=== PATIENT | female | born 1950 | race Caucasian/White ===

== ENCOUNTER → 2022-05-15 07:50 | Outpatient (BNVA) | payer MEDICARE, SELFPAY | PROVIDERS: Family Provider Family Medicine; PCP Family Medicine; Visit Provider Family Medicine | DX: Z00.00 Encounter for general adult medical examination without abnormal findings (principal); I10 Essential (primary) hypertension | CPT/HCPCS: 80053; 80061 ==

== ENCOUNTER → 2022-06-18 07:54 | Outpatient (BNVA) | payer MEDICARE, SELFPAY | PROVIDERS: Family Provider Family Medicine; PCP Family Medicine; Visit Provider Family Medicine | DX: Z00.00 Encounter for general adult medical examination without abnormal findings (principal) | CPT/HCPCS: 80048 ==

== ENCOUNTER → 2022-09-30 13:31 | Outpatient (BNVA) | payer MEDICARE, SELFPAY | PROVIDERS: Family Provider Family Medicine; PCP Family Medicine; Visit Provider Family Medicine | DX: I10 Essential (primary) hypertension (principal); E87.1 Hypo-osmolality and hyponatremia | CPT/HCPCS: 80048 ==

== ENCOUNTER → 2023-03-11 07:54 | Outpatient (BNVA) | payer MEDICARE, SELFPAY | PROVIDERS: Family Provider Family Medicine; PCP Family Medicine; Visit Provider Family Medicine | DX: I10 Essential (primary) hypertension (principal); I87.2 Venous insufficiency (chronic) (peripheral) | CPT/HCPCS: 80048 ==

== ENCOUNTER → 2023-04-29 08:41 | Outpatient (BNVA) | payer MEDICARE, SELFPAY | PROVIDERS: Family Provider Family Medicine; PCP Family Medicine; Visit Provider Family Medicine | DX: I87.2 Venous insufficiency (chronic) (peripheral) (principal); Z00.00 Encounter for general adult medical examination without abnormal findings; I10 Essential (primary) hypertension | CPT/HCPCS: 80048 ==

== ENCOUNTER → 2023-07-13 07:47 | Outpatient (BNVA) | payer MEDICARE, SELFPAY | PROVIDERS: Family Provider Family Medicine; PCP Family Medicine; Visit Provider Family Medicine | DX: E87.1 Hypo-osmolality and hyponatremia (principal) | CPT/HCPCS: 80048 ==

== ENCOUNTER → 2024-03-15 10:46 | Outpatient (BNVA) | payer MEDICARE, SELFPAY | PROVIDERS: Family Provider Family Medicine; PCP Family Medicine; Visit Provider Family Medicine | DX: F43.9 Reaction to severe stress, unspecified (principal); I10 Essential (primary) hypertension; E87.1 Hypo-osmolality and hyponatremia; E03.9 Hypothyroidism, unspecified | CPT/HCPCS: 80053; 80061; 84443 ==

== ENCOUNTER 2024-07-13 07:43 | Emergency (ER) | payer MEDICARE, SELFPAY ==
--- NOTE | 2024-07-13 07:55 | XR_ITS ---
WS: [id number] Exam: XR wrist LT min 3V* [id number] Date/Time of Exam: 07/13/2024 8:17 AM Reason For Exam: pain There is an impacted comminuted fracture of the distal radius. There is some shortening. The ulna appears to be intact. Moderate degenerative changes at the wrist. XR/XR wrist LT min 3V* [id number] IMPRESSION: 1. Impacted comminuted fracture of the distal radius with some degree of shorte maura.
[2024-07-13 08:10] VITALS: BP 180/96; PULSE 83; RESP 18; TEMP 36.7; O2SAT 99; BMI 34.2
[2024-07-13] MEDS: acetaminophen 325 mg Tablet 650 MG PO (09:27)
--- NOTE | 2024-07-13 09:29 | ED_ITS ---
HPI - Extremity Problem General: Chief complaint: Extremity Injury, Upper Stated complaint: L wrist pain Time Seen by Provider: 07/13/24 07:54 History of Present Illness: 74-year-old female presents emergency ro om she fell landed on an outstretched arm. She has had episodes in the past where she is getting dizzy and fell she is never really found a specific reason for it. She denies full loss of consciousness. No chest pain or vomiting. Complaining of pain in her left wrist. Associated symptoms: Deny chest pain, fever(s) or rash Related Data Previous Rx's ?Medication ?Instructions ?Recorded hydrochlorothiazide 25 mg tablet 25 mg PO DAILY bp #90 tabs 10/05/23 losartan 100 mg tablet 100 mg PO DAILY #90 tabs 04/29 potassium chloride 20 mEq 20 meq PO DAILY take with HC TZ #90 03/15/24 tablet,extended release tabs escitalopram oxalate 10 mg tablet 10 mg PO DAILY stres s reactions 04/05/24 #30 tabs fast form, left wrist #1 ea 07/13/24 Allergies Allergy/AdvReac Type Severity Reaction Status Date / Time hydroxychloroquine (From Allergy Severe rash Verified 07/13/24 11:04 Plaquenil) codeine Allergy Intermediate nausea/vomi Verified 07/13/24 11:04 ting amlodipine AdvReac edema Uncoded 07/13/24 11:04 Review of Systems Const: Denies: fever(s) or chills Card: Denies: chest pain Resp: Denies: dyspnea GI: Denies: abdominal pain : Denies: dysuria, urinary frequency or urinary urgency Musc: Reports: joint pain and joint swelling; Denies: neck pain or back pain Skin/Breast: Denies: rash [facility] ED PFSH: Social History Smoking and tobacco/nicotine status: never used tobacco/nicotine Physical Exam Const: COMMON NORMALS: no acute distress GENERAL APPEARANCE: cooperative and comfortable ORIENTATION/CONSCIOUSNESS: Yes awake, Yes oriented to person, Yes oriented to place and Yes oriented to time HENMT: COMMON NORMALS: normocephalic, atraumatic and hearing grossly normal bilaterally HEAD & SCALP: normocephalic and atraumatic Resp: COMMON NORMALS: normal respiratory effort, No retractions, No use of accessory muscles and clear to auscultation bilaterally AUSCULTATION: clear to auscultation bilaterally Cardio: COMMON NORMALS: regular rate, regular rhythm and No murmurs present (Cardio) RATE: regular rate RHYTHM: regular rhythm GI: COMMON NORMALS: Soft to palpation and No hepatosplenomegaly present AUSCULTATION: Yes normoactive bowel sounds PALPATION: Yes Soft to palpation, No Tenderness to palpation present (GI), No Guarding due to palpation present (GI) and Yes No hepatosplenomegaly present Extremity: OTHER: Deformity of the left wrist neurovascularly intact Neuro: SENSORIUM/ORIENTATION: Yes oriented to person, Yes oriented to place and Yes oriented to time Skin: COMMON NORMALS: no rashes or lesions noted GENERAL SKIN EXAM: no rashes or lesions noted Course Vital Signs: Vital signs: Vital Signs Temperature 98.1 F 07/13/24 08:10 Pulse Rate 83 07/13/24 08:10 Respiratory Rate 18 07/13/24 08:10 Blood Pressure 180/96 07/13/24 08:10 Pulse Oximetry 99 07/13/24 08:10 Oxygen Delivery Me thod Room Air 07/13/24 08:10 MDM - Extremity (Nontraumatic) Medical Decision Making No other injuries injuries she does have is consistent with reaching out to break her fall. She does not have any injury or abrasion to her head or scalp. She denies any chest pain at this time has not had any vomiting. Patient placed in a splint we are making arrangements for discharge with Dr. Burt's office called they were able to see the patient immediately send patient was discharged from the ER to her office to discuss definitive care for the wrist fracture. Lab Data Radiology Impressions Wrist X-Ray 07/13/24 07:55 IMPRESSION: 1. Impacted comminuted fracture of the distal radius with some degree of shortening. All radiology interpretation(s) finalized by discharge Discharge Plan Discharge Patient Disposition: Home Clinical Impression: Distal radius fracture, left Condition: Stable Prescriptions: No Action (DME) fast form, left wrist See Rx Instructions .Route .MEDSUPPLY Qty: 1 0RF Rx Instructions: As directed hydrochlorothiazide 25 mg tablet 25 mg PO DAILY Qty: 90 3RF losartan 100 mg tablet 100 mg PO DAILY Qty: 90 3RF potassium chloride 20 mEq tablet extended release 20 meq PO DAILY Qty: 90 3RF escitalopram oxalate 10 mg tablet 10 mg PO DAILY Qty: 30 5RF Discharge Orders: Discharge ED (Routine); Ordered 07/13/24 Ordered By: Vineet Morales Referrals: Ramos Dixon DO [Primary Care Provider] - Discharge Diet: Usual diet Discharge Activity: Resume usual activity Patient Instructions: Opioid Safety, Pain Management Activity Restrictions/Additional Instructions: Thank you for choosing [facility] for your healthcare needs today. It is very important that you follow up as instructed or that you return to the Emergency Department should you have concerns or if your condition changes or worsens in any way. You were seen in the emergency room after having fallen last night on x-ray you have a distal radius fracture on the left forearm (wrist fracture). This likely will require some surgery. Will place you in a splint and a sling. You declined pain medication you can use [id number] Tylenol as needed for discomfort recommend you elevate the wrist when ever possible. Case management will make arrangements for you to follow-up with orthopedics. Print Language: Upper Sorbian Coding Level of Care Code ED Advisory Application Developer for Jen Christianson
== END 2024-07-13 10:57 | disposition home or self-care (01) ==
PROVIDERS: Emergency Provider Family Medicine; PCP Family Medicine
DX: S52.572A Other intraarticular fracture of lower end of left radius, initial encounter for closed fracture (principal); X58.XXXA Exposure to other specified factors, initial encounter; Z46.89 Encounter for fitting and adjustment of other specified devices
CPT/HCPCS: 25600; 29125; 73110; 99204; 99283; J9999

== ENCOUNTER 2024-07-13 15:12 | Outpatient (CLI) | payer MEDICARE, SELFPAY | END 2024-07-13 15:13 | disposition home or self-care (01) | LOC: SPT 15:13 | PROVIDERS: PCP Family Medicine; Visit Provider Specialist | DX: Z46.89 Encounter for fitting and adjustment of other specified devices (principal); S52.592D Other fractures of lower end of left radius, subsequent encounter for closed fracture with routine healing; X58.XXXD Exposure to other specified factors, subsequent encounter | CPT/HCPCS: 97760; L3982 ==

== ENCOUNTER 2024-07-16 13:35 | Emergency (ER) | payer MEDICARE, SELFPAY ==
[2024-07-16 13:39] VITALS: BP 147/78; PULSE 80; RESP 16; TEMP 36.6; O2SAT 96
--- NOTE | 2024-07-16 13:50 | W.ED.EXTPRO ---
HPI - Extremity Problem General: Chief complaint: Extremity Injury, Upper Stated complaint: swelling on lft hand Time Seen by Provider: 07/16/24 13:47 History of Present Illness: 74-year-old female with a history of a recent wrist fracture who presents to the emergency room with wrist pain and swelling. She was seen in Ortho clinic and was placed in a adjustable fast form splint. Dr. Katharine Medrano discussed surgical options and the patient is wanting to attempt nonsurgical options. No numbness. No pain in her fingers. Has no swelling in her fingers. She was concerned the splint might be too tight. Related Data Previous Rx's ?Medication ?Instructions ?Recorded hydrochlorothiazide 25 mg tablet 25 mg PO DAILY bp #90 tabs 10/05/23 losartan 100 mg tablet 100 mg PO DAILY #90 tabs 10/05/23 potassium chloride 20 mEq 20 meq PO DAILY take with HCTZ #90 03/15/24 tablet,extended release tabs escitalopram oxalate 10 mg tablet 10 mg PO DAILY stress reactions 04/05/24 #30 tabs tramadol 50 mg tablet 50 mg PO Q8H PRN pain #10 tabs 07/16/24 Allergies Allergy/AdvReac Type Severity Reaction Status Date / Time hydroxychloroquine (From Allergy Severe rash Verified 07/16/24 13:44 Plaquenil) codeine Allergy Intermediate nausea/vomi Verified 07/16/24 13:44 ting amlodipine AdvReac edema Uncoded 07/16/24 13:44 Review of Systems Narrative: Constitutional symptoms: Negative except as documented in HPI. Skin symptoms: Negative except as documented in HPI. Eye symptoms: Negative except as documented in HPI. ENMT symptoms: Negative except as documented in HPI. Respiratory symptoms: Negative except as documented in HPI. Cardiovascular symptoms: Negative except as documented in HPI. Gastrointestinal symptoms: Negative except as documented in HPI. Genitourinary symptoms: Negative except as documented in HPI. Musculoskeletal symptoms: Negative except as documented in HPI. Neurologic symptoms: Negative except as documented in HPI. Psychiatric symptoms: Negative except as documented in HPI. Endocrine symptoms: Negative except as documented in HPI. [facility] ED PFSH: Social History Smoking and tobacco/nicotine status: never used tobacco/nicotine Physical Exam Narrative: EXAM NARRATIVE: General: Alert, no acute distress. Skin: warm and dry Head: Normocephalic Neck: Trachea midline Eye: Extraocular movements are intact. Ears, nose, mouth and throat: Oral mucosa moist Respiratory: Respirations are non-labored Musculoskeletal: Splint in place. There is some edema of the fingers but she has full range of motion of the fingers. Good cap refill. No pain in her fingers. No numbness in her fingers. She has pain at the site of the fracture. Neurological: Alert and oriented, No focal neurological deficit observed. Psychiatric: Cooperative, appropriate mood & affect. Course Vital Signs: Vital signs: Vital Signs Temperature 98 F 07/16/24 13:39 Pulse Rate 80 07/16/24 13:39 Respiratory Rate 18 07/16/24 14:07 Blood Pressure 147/78 07/16/24 13:39 Pulse Oximetry 96 07/16/24 13:39 Oxygen Delivery Me thod Room Air 07/16/24 13:39 MDM - Extremity (Nontraumatic) Medical Decision Making Consultation: I spoke with Dr. Alcantar. She recommends the patient take it easy and keep the arm elevated which the patient has not been doing. I discussed this with the patient and she expresses understanding that if she wants to have a nonsurgical good outcome that she needs to limit her activity and keep the arm elevated as instructed. Assessment and plan: Follow-up for wrist fracture. - Discharged home - Discussed plan with patient. Answered any questions. - Evaluation and treatment of this problem were appropriate in the emergency setting. No radiology studies performed this visit Discharge Plan Discharge Patient Disposition: Home Clinical Impression: Fracture of wrist Qualifiers: Encounter type: subsequent encounter Fracture type: closed Laterality: left Fracture healing: with routine healing Qualified Code(s): S62.102D - Fracture of unspecified carpal bone, left wrist, subsequent encounter for fracture with routine healing Condition: Stable Prescriptions: New tramadol 50 mg tablet 50 mg PO Q8H PRN (Reason: pain) Qty: 10 0RF No Action hydrochlorothiazide 25 mg tablet 25 mg PO DAILY Qty: 90 3RF losartan 100 mg tablet 100 mg PO DAILY Qty: 90 3RF potassium chloride 20 mEq tablet extended release 20 meq PO DAILY Qty: 90 3RF escitalopram oxalate 10 mg tablet 10 mg PO DAILY Qty: 30 5RF Discharge Orders: Discharge ED (Routine); Ordered 07/16/24 Ordered By: Uzma Holloway Referrals: Belinda Alcantar MD [Physician] - (Please follow-up as instructed. Return the emergency room or to her clinic if pain worsens. Keep arm elevated and use ice.) Ramos Dixon, [Primary Care Provider] - Discharge Diet: Usual diet Discharge Activity: Limit activity as instructed Patient Instructions: Cast Care (ED), Opioid Safety, Pain Management Activity Restrictions/Additional Instructions: Thank you for choosing [facility] for your healthcare needs today. Please realize this is an emergency room and that we are providing you with a medical screening exam and this may not be complete and all inclusive of all the testing and or work up that you may need to determine your ailment or severity of your illness. You have been screened and evaluated and felt safe for discharge. Health conditions do change or evolve sometimes and as such it is important that you follow up with your Primary Doctor to be re checked, 3-5 days is a general good time frame for follow up. You are always welcome to return to the ED for re assessment if your symptoms are worsening or you have new concerns Print Language: Slovak Coding Level of Care Code ED Internet Assessor for Jen Christianson
[2024-07-16 14:07] VITALS: RESP 18
== END 2024-07-16 14:09 | disposition home or self-care (01) ==
PROVIDERS: Emergency Provider Emergency Medicine; PCP Family Medicine
DX: S62.102D Fracture of unspecified carpal bone, left wrist, subsequent encounter for fracture with routine healing (principal); X58.XXXD Exposure to other specified factors, subsequent encounter
CPT/HCPCS: 99281

== ENCOUNTER → 2024-07-25 09:57 | Outpatient (BNVA) | payer MEDICARE, SELFPAY | PROVIDERS: PCP Family Medicine; Visit Provider Specialist | DX: S52.572D Other intraarticular fracture of lower end of left radius, subsequent encounter for closed fracture with routine healing (principal); X58.XXXD Exposure to other specified factors, subsequent encounter | CPT/HCPCS: 73110; 99024 ==

== ENCOUNTER → 2024-08-01 11:15 | Outpatient (BNVA) | payer MEDICARE, SELFPAY | PROVIDERS: PCP Family Medicine; Visit Provider Specialist | DX: S52.572D Other intraarticular fracture of lower end of left radius, subsequent encounter for closed fracture with routine healing (principal); X58.XXXD Exposure to other specified factors, subsequent encounter | CPT/HCPCS: 73110; 99024 ==

== ENCOUNTER → 2024-08-19 08:19 | Outpatient (BNVA) | payer MEDICARE, SELFPAY | PROVIDERS: PCP Family Medicine; Visit Provider Nurse Practitioner | DX: S52.572D Other intraarticular fracture of lower end of left radius, subsequent encounter for closed fracture with routine healing (principal); X58.XXXD Exposure to other specified factors, subsequent encounter | CPT/HCPCS: 73110 ==

== ENCOUNTER → 2024-09-21 08:59 | Outpatient (BNVA) | payer MEDICARE, SELFPAY | PROVIDERS: PCP Family Medicine; Visit Provider Specialist | DX: S52.572D Other intraarticular fracture of lower end of left radius, subsequent encounter for closed fracture with routine healing (principal); X58.XXXD Exposure to other specified factors, subsequent encounter | CPT/HCPCS: 73110; 99024 ==

== ENCOUNTER 2024-10-12 17:01 | Emergency (ER) | payer MEDICARE, SELFPAY ==
[2024-10-12 17:07] VITALS: BP 151/71; PULSE 93; RESP 18; TEMP 36.8; O2SAT 95; BMI 34.9
--- OUTSIDE RECORDS SUMMARY | 2024-10-12 17:13 | XMS_ITS | Encounter Summary ---
Author Organization [facility] Address [address] [place] [address] Care Team Providers Care Veneer Patcher Name Role Phone Neela German DO Primary Care Provider [phone] [phone] Encounter Details Date Type Department Care Team (Latest Contact Info) Description 03/10/2000 Outpatient Historical [facility] Rheumatology- [place] [facility] [place] [address] [place] [phone] David Villanueva DO [address] [facility] [address] [place] [address] Unspecified inflammatory polyarthropathy (CMS/HCC) (Primary Dx); Other and unspecified nonspecific immunological findings; Anemia, unspecified; Diseases of lips Social History Tobacco Use Types Packs/Day Years Used Date Smoking Tobacco: Never Assessed Comments Unknown Sex and Gender Information Value Date Recorded Sex Assigned at Not on file 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
--- OUTSIDE RECORDS SUMMARY | 2024-10-12 17:13 | XMS_ITS | Encounter Summary ---
Author Organization [facility] Address [address] [place] [address] Care Team Providers Care Data Support Analyst Name Role Phone Neela German DO Primary Care Provider [phone] Encounter Details Date Type Department Care Team (Late st Contact Info) Description 02/02/2001 Outpatient Historical [facility] Rheumatology- [facility] [place] [address] [place] [address] David Villanueva DO [address] [facility] [address] [place] [address] DIFF CONNECT TIS DIS NOS (Primary Dx); INFLAMM POLYARTHROP NOS (CMS/HCC); JOINT PAIN-MULT JTS Social History Tobacco Use Types Packs/Day Years Used Date Smoking Tobacco: Never Assessed Comments Unknown Sex and Gender Information Value Date Recorded Sex Assigned at Not on file 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
--- OUTSIDE RECORDS SUMMARY | 2024-10-12 17:13 | XMS_ITS | Encounter Summary ---
Author Organization [facility] Address [address] [place] [address] Care Team Providers Care Masonry Teacher Name Role Phone Neela German DO Primary Care Provider [phone]- [phone] Encounter Details Date Type Department Care Team (Latest Contact Info) Description 05/05/2000 Outpatient Historical [facility] Rheumatology- [facility] [place] [address] [place] [address] David Villanueva DO [address] [facility] [address] [place] [address] Unspecified diffuse connective tissue disease (Primary Dx); Unspecified inflammatory polyarthropathy (CMS/HCC); Encounter for long-term (current) use of other medications Social History Tobacco Use Types Packs/Day Years Used Date Smoking Tobacco: Never Assessed Comments Unknown Sex and Gender Information Value Date Recorded Sex Assigned at Not on file 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 Gender Identity Not on file Sexual Orientation Not on file documented as of this encounter Plan of Treatment Not on file documented as of this encounter Visit Diagnoses Diagnosis Unspecified diffuse connective tissue disease- Primary Unspecified inflammatory polyarthropathy (CMS/HCC) Unspecified inflammatory polyarthropathy Encounter for long-term (current) use of other medications documented in this encounter Care Teams Masonry Teacher Relationship Specialty Start Date End Date Neela German DO [address] [place] [address] PCP - General Family Practice 08/08/20 documented as of this encounter
--- OUTSIDE RECORDS SUMMARY | 2024-10-12 17:13 | XMS_ITS | Encounter Summary ---
Author Organization [facility] Address [address] [place] [address] Care Team Providers Care Center Machine Operator Name Role Phone Neela German DO Primary Care Provider [phone]- [phone] Encounter Details Date Type Department Care Team (Late st Contact Info) Description 12/20/2002 Outpatient Historical [facility] Imaging Services-[facility] [place] [address] [place] [phone] David Villanueva DO [address] [facility] [address] [place] [address] RHEUMATOID ARTHRITIS (CMS/HCC) (Primary Dx) Social History Tobacco Use Types Packs/Day Years Used Date Smoking Tobacco: Never Assessed Comments Unknown Sex and Gender Information Value Date Recorded Sex Assigned at Not on file 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
--- OUTSIDE RECORDS SUMMARY | 2024-10-12 17:13 | XMS_ITS | Encounter Summary ---
Author Organization [facility] Address [address] [place] [address] Care Team Providers Care Sales And Production Manager Name Role Phone Neela German DO Primary Care Provider [phone]- [phone] Encounter Details Date Type Department Care Team (Late st Contact Info) Description 12/19/2003 Outpatient Historical [facility] Rheumatology- [facility] [place] [address] [place] [phone] aDvid Villanueva DO [address] [facility] [address] [place] [address] DIFF CONNECT TIS DIS NOS (Primary Dx) Social History Tobacco Use Types Packs/Day Years Used Date Smoking Tobacco: Never Assessed Comments Unknown Sex and Gender Information Value Date Recorded Sex Assigned at Not on file 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
--- OUTSIDE RECORDS SUMMARY | 2024-10-12 17:13 | XMS_ITS | Encounter Summary ---
Author Organization [facility] Address [address] [place] [address] Care Team Providers Care Field Cane Scale Clerk Name Role Phone Neela German DO Primary Care Provider +1- [phone] Encounter Details Date Type Department Care Team (Late st Contact Info) Description 04/08/2001 Outpatient Historical [facility] Rheumatology- [facility] [place] [address] [place] [phone] David Villanueva DO [address] [facility] [address] [place] [address] DIFF CONNECT TIS DIS NOS (Primary Dx); AFTERCARE LONGTERM USE MEDICATN Social History Tobacco Use Types Packs/Day Years Used Date Smoking Tobacco: Never Assessed Comments Unknown Sex and Gender Information Value Date Recorded Sex Assigned at Not on file 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
--- OUTSIDE RECORDS SUMMARY | 2024-10-12 17:13 | XMS_ITS | Encounter Summary ---
Author Organization [facility] Address [address] [place] [address] Care Team Providers Care Block Tester Name Role Phone Neela German DO Primary Care Provider +1- [phone] Encounter Details Date Type Department Care Team (Late st Contact Info) Description 06/21/2002 Outpatient Historical [facility] Rheumatology- [facility] [place] [address] [place] [address] David Villanueva DO [address] [facility] [address] [place] [address] DIFF CONNECT TIS DIS NOS (Primary Dx) Social History Tobacco Use Types Packs/Day Years Used Date Smoking Tobacco: Never Assessed Comments Unknown Sex and Gender Information Value Date Recorded Sex Assigned at Not on file 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
--- OUTSIDE RECORDS SUMMARY | 2024-10-12 17:13 | XMS_ITS | Encounter Summary ---
Author Organization [facility] Address [address] [place] [address] Care Team Providers Care Gun Stock Checker Name Role Phone Neela German DO Primary Care Provider +1- [phone] Encounter Details Date Type Department Care Team (Late st Contact Info) Description 10/04/2001 Outpatient Historical [facility] Imaging Services-[place] [facility] [address] [place] [address] David Villanueva DO [address] [facility] [address] [place] [address] DIFF CONNECT TIS DIS NOS (Primary Dx) Social History Tobacco Use Types Packs/Day Years Used Date Smoking Tobacco: Never Assessed Comments Unknown Sex and Gender Information Value Date Recorded Sex Assigned at Not on file 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
--- OUTSIDE RECORDS SUMMARY | 2024-10-12 17:13 | XMS_ITS | Encounter Summary ---
Author Organization [facility] Address [address] [place] [address] Care Team Providers Care Park Guard Name Role Phone Neela German DO Primary Care Provider +1- [phone] Encounter Details Date Type Department Care Team (Late st Contact Info) Description 05/05/2000 Outpatient Historical [facility] David Villanueva DO [address] 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
--- OUTSIDE RECORDS SUMMARY | 2024-10-12 17:13 | XMS_ITS | Encounter Summary ---
Author Organization [facility] Address [address] [place] [address] Care Team Providers Care Subwarehouse Supervisor Name Role Phone Neela German DO Primary Care Provider +1- [phone] Encounter Details Date Type Department Care Team (Latest Contact Info) Description 07/13/2000 Outpatient Historical [facility] Rheumatology- [facility] [place] [address] [place] [address] David Villanueva DO [address] [facility] [address] [place] [address] Syst lupus erythematosus (Primary Dx); Unspecified inflammatory polyarthropathy (CMS/HCC); Encounter for long-term (current) use of other medications Social History Tobacco Use Types Packs/Day Years Used Date Smoking Tobacco: Never Assessed Comments Unknown Sex and Gender Information Value Date Recorded Sex Assigned at Not on file 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 Gender Identity Not on file Sexual Orientation Not on file documented as of this encounter Plan of Treatment Not on file documented as of this encounter Visit Diagnoses Diagnosis Syst lupus erythematosus- Primary Systemic lupus erythematosus Unspecified inflammatory polyarthropathy (CMS/HCC) Unspecified inflammatory polyarthropathy Encounter for long-term (current) use of other medications documented in this encounter Care Teams Subwarehouse Supervisor Relationship Specialty Start Date End Date Neela German DO [address] [place] [address] PCP - General Family Practice 08/08/20 documented as of this encounter
--- OUTSIDE RECORDS SUMMARY | 2024-10-12 17:13 | XMS_ITS | Encounter Summary ---
Author Organization [facility] Address [address] [place] [address] Care Team Providers Care Tow Motor Mechanic Name Role Phone Neela German DO Primary Care Provider +1 [phone] Encounter Details Date Type Department Care Team (Late st Contact Info) Description 01/20/2005 Outpatient Historical [facility] Rheumatology- [facility] [place] [address] [place] [address] David Villanueva DO [address] [facility] [address] [place] [address] DIFF CONNECT TIS DIS NOS (Primary Dx); AFTERCARE DETENTION USE MEDICATN Social History Tobacco Use Types Packs/Day Years Used Date Smoking Tobacco: Never Assessed Comments Unknown Sex and Gender Information Value Date Recorded Sex Assigned at Not on file 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
--- OUTSIDE RECORDS SUMMARY | 2024-10-12 17:13 | XMS_ITS | Encounter Summary ---
Author Organization [facility] Address [address] [place] [address] Care Team Providers Care Information Security Consultant Name Role Phone Neela German DO Primary Care Provider +1- [phone] Encounter Details Date Type Department Care Team (Late st Contact Info) Description 03/10/2000 Outpatient Historical [facility] David Villanueva DO [address] [facility] [address] [place] [id number] Syst lupus erythematosus (Primary Dx) Social History Tobacco Use Types Packs/Day Years Used Date Smoking Tobacco: Never Assessed Comments Unknown Sex and Gender Information Value Date Recorded Sex Assigned at Not on file Legal 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
--- OUTSIDE RECORDS SUMMARY | 2024-10-12 17:13 | XMS_ITS | Encounter Summary ---
Author Organization [facility] Address [address] [place] [address] Care Team Providers Care Logistics Supervisor Name Role Phone Neela German DO Primary Care Provider +1- [phone] Encounter Details Date Type Department Care Team (Late st Contact Info) Description 10/04/2001 Outpatient Historical [facility] Rheumatology- [facility] [place] [address] [place] [address] David Villanueva DO [address] 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
--- OUTSIDE RECORDS SUMMARY | 2024-10-12 17:13 | XMS_ITS | Encounter Summary ---
Author Organization [facility] Address [address] [place] [address] Care Team Providers Care Solutions Sales Executive Name Role Phone Neela German DO Primary Care Provider +1 [phone] Encounter Details Date Type Department Care Team (Late st Contact Info) Description 12/20/[address] 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 Gender Identity Not on file Sexual Orientation Not on file documented as of this encounter Plan of Treatment Not on file documented as of this encounter Visit Diagnoses Diagnosis Unspecified diffuse connective tissue disease- Primary Unspecified inflammatory polyarthropathy (CMS/HCC) Unspecified inflammatory polyarthropathy Encounter for long-term (current) use of other medications documented in this encounter Care Teams Solutions Sales Executive Relationship Specialty Start Date End Date Neela German DO [address] [place] [address] PCP - General Family Practice 08/08/20 documented as of this encounter
--- OUTSIDE RECORDS SUMMARY | 2024-10-12 17:13 | XMS_ITS | Clinical Summary ---
Author Organization [facility] Address [address] [place] [address] Care Team Providers Care Group Home Supervisor Name Role Phone Neela German Primary Care Provider +1- [phone] Allergies Active Allergy Reactions Criticality Noted Date Comments Codeine Nausea and Vomiting Low 02/16/2008 Medications HYZAAR PO Take by mouth. Activ e losartan-hydroCHL OROthiazide (HYZAAR) 100-25 mg tablet Take 25 Tablets by mouth daily. 07/07/19 21 Active ergocalciferol (Vitamin D2) 50,000 unit capsuleIndication s:Vitamin D insufficiency Take 1 Capsule (50,000 Units) by mouth see administration instructions. Take 1 tab weekly x 8 weeks then take twice monthly after that. 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 Resolved Problems Problem Noted Date Diagnosed Date Resolved Date Long-Term (Current) Use of Leflunomide 02/16/2008 02/15/2009 Overview (02/16/2008): No evidence of developing side effects. 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 Will attempts to reduce dose further to once weekly to maintain custodial remission and lab every 3 mo. Unspecified diffuse connective tissue disease 02/16/2008 Immunizations Immunization Administration Dates Next Due ([place])(12 YR UP) COVID-19 VACCINE - EMERGENCY USE AUTHORIZATION, MRNA, [id number](PF) 30 MCG/0.3 ML IM SUSP 06/29/2020,06/01/2020 Influenza Vaccine Tri Split 4+ Pf Im 03/14/2013 Pneumococcal 13-valent Conjugate Vaccine SCHIP 0 06/20/2019 Pneumococcal Polysaccharide Vaccine 23-leigh IM VF C 06/19/2020 Social History Tobacco Use Types Packs/Day Years Used Date Smoking Tobacco: Never Smokeless Tobacco: Never Alcohol Use Standard Drinks/Week Comments No 0 (1 standard drink = 0.6 oz pur e alcohol) Comments No Sex and Gender Information Value Date Recorded Sex Assigned at Not on file 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 Gender Identity Not on file Sexual Orientation Not on file Last Filed Vital Signs Vital Sign Reading Time Taken Comments Blood Pressure 128/88 08/08/2020 2:39 PM CDT Pulse 96 08/08/2020 2:39 PM CDT Temperature 36.7 C (98 F) 08/08/2020 2:39 PM CDT Respiratory Rate - - Oxygen Saturation 98% 08/08/2020 2:39 PM CDT Inhaled Oxygen Concentration - - Weight 97.1 kg (214 lb) 08/08/2020 2:39 PM CDT Height 162.6 cm (5' 4 ) 08/08/2020 2:39 PM CDT Body Mass Index 36.73 08/08/2020 2:39 PM CDT Plan of Treatment Health Maintenance Due Date Last Done Comments DTAP/TDAP/TD VACCINES (1 - Tdap) 1967 ZOSTER VACCINE (1 of 2) 1998 OSTEOPOROSIS SCREENING 2013 PNEUMOCOCCAL VACCINE 50+ YEA RS (2 of 2 - PCV) 06/19/2021 06/19/2020 RSV VACCINE (60+ or ) (1 - 1-dose 75+ series) 2023 COVID-19 Vaccine (3 - 2023- season) 2023, 06/01/2020 Preventative Visit- Commercial 04/06/2024 INFLUENZA VACCINE (#1) 2024 1, 08/08/2020, 03/14/2013 Insurance MEDICARE PART A [facility] B [facility] Care Teams Group Home Supervisor Relationship Specialty Start Date End Date Neela German DO [address] [place] [address] PCP - General Family Practice 08/08/20
--- OUTSIDE RECORDS SUMMARY | 2024-10-12 17:13 | XMS_ITS | Encounter Summary ---
Author Organization [facility] Address [address] [place] [address] Care Team Providers Care Chicle Grinder Feeder Name Role Phone Neela German DO Primary Care Provider +1 [phone] Encounter Details Date Type Department Care Team (Late st Contact Info) Description 12/28/2006 Outpatient Historical [facility] Rheumatology- [facility] [place] [address] [place] [address] David Villanueva DO [address] [facility] [address] [place] [address] Unspecified Diffuse Connective Tissue Disease (Primary Dx); Encounter for Long-Term (Current) Use of Other Medications Social History Tobacco Use Types Packs/Day Years Used Date Smoking Tobacco: Never Assessed Comments No Sex and Gender Information Value Date Recorded Sex Assigned at Not on file Legal Sex Female 3:11 AM SCALER Gender Identity Not on file Sexual Orientation Not on file documented as of this encounter Plan of Treatment Not on file documented as of this encounter Visit Diagnoses Diagnosis Unspecified diffuse connective tissue disease- Primary Encounter for long-term (current) use of other medications documented in this encounter Care Teams Chicle Grinder Feeder Relationship Specialty Start Date End Date Neela German DO [address] [place] [phone] PCP - General Family Practice 08/08/20 documented as of this encounter
--- OUTSIDE RECORDS SUMMARY | 2024-10-12 17:13 | XMS_ITS | Encounter Summary ---
Author Organization [facility] Address [address] [place] [address] Care Team Providers Care Commodity Director Name Role Phone Neela German DO Primary Care Provider +1 [phone] Encounter Details Date Type Department Care Team (Late st Contact Info) Description 12/22/2005 Outpatient Historical [facility] Rheumatology- [facility] [place] [address] [place] [address] David Villanueva DO [address] [facility] [address] [place] [address] Unspecified Diffuse Connective Tissue Disease (Primary Dx); Encounter for Long-Term (Current) Use of Other Medications Social History Tobacco Use Types Packs/Day Years Used Date Smoking Tobacco: Never Assessed Comments Unknown Sex and Gender Information Value Date Recorded Sex Assigned at Not on file 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
--- OUTSIDE RECORDS SUMMARY | 2024-10-12 17:14 | XMS_ITS | Encounter Summary ---
Author Organization [facility] Address [address] [place] [address] Care Team Providers Care Seismograph Supervisor Name Role Phone Neela German DO Primary Care Provider [phone]- [phone] Encounter Details Date Type Department Care Team (Late st Contact Info) Description 09/14/2000 Outpatient Historical [facility] David Villanueva DO [address] [facility] [address] [place] [address] Encounter for long-term (current) use of other medications (Primary Dx); Unspecified diffuse connective tissue disease Social History Tobacco Use Types Packs/Day Years Used Date Smoking Tobacco: Never Assessed Comments Unknown Sex and Gender Information Value Date Recorded Sex Assigned at Not on file 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
--- OUTSIDE RECORDS SUMMARY | 2024-10-12 17:14 | XMS_ITS | Encounter Summary ---
Author Organization [facility] Address [address] [place] [address] Care Team Providers Care Detective Supervisor Name Role Phone Neela German DO Primary Care Provider +1- [phone] Encounter Details Date Type Department Care Team (Late st Contact Info) Description 07/13/2000 Outpatient Historical [facility] David Villanueva DO [address] [facility] [address] [place] [address] Encounter for long-term (current) use of other medications (Primary Dx); Rheumatoid arthritis(714.0) (CMS/HCC) Social History Tobacco Use Types Packs/Day Years Used Date Smoking Tobacco: Never Assessed Comments Unknown Sex and Gender Information Value Date Recorded Sex Assigned at Not on file Legal 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
--- OUTSIDE RECORDS SUMMARY | 2024-10-12 17:14 | XMS_ITS | Encounter Summary ---
Author Organization [facility] Address [address] [place] [address] Care Team Providers Care Hat Copyist Name Role Phone Neela German DO Primary Care Provider +1- [phone] Encounter Details Date Type Department Care Team (Latest Contact Info) Description 09/14/2000 Outpatient Historical [facility] Rheumatology- [facility] [address] [place] [address] David Villanueva DO [address] [facility] [address] [place] [address] Unspecified diffuse connective tissue disease (Primary Dx); Unspecified inflammatory polyarthropathy (CMS/HCC) Social History Tobacco Use Types Packs/Day Years Used Date Smoking Tobacco: Never Assessed Comments Unknown Sex and Gender Information Value Date Recorded Sex Assigned at Not on file 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
--- OUTSIDE RECORDS SUMMARY | 2024-10-12 17:14 | XMS_ITS | Clinical Summary ---
Author Organization [facility] Address [address] [place] [address] Care Team Providers Care Automatic Beam Warper Tender Name Role Phone Ramos Dixon DO Primary Care Provider [phone] Allergies Active Allergy Reactions Criticality Noted Date Comments Codeine Nausea and Vomiting Low 02/16/2008 Medications ergocalciferol (VITAMIN D2) 50,000 unit capsuleIndication s:Vitamin D insufficiency Take 1 Capsule (50,000 Units) by mouth see administration instructions. Take 1 tab weekly x 8 weeks then take twice monthly after that. 16 Capsule 2 08/10/19 21 Active losartan-hydroCHL OROthiazide (HYZAAR) 100-25 mg tablet Take 25 Tablets by mouth daily. 07/07/19 21 Active Active Problems Problem Noted Date Diagnosed Date MCTD ELIZABETH 1:320 COAL HAULER+ SSA+ Dx 03/200002/15/2009 Overview (08/02/2020): Will discontinue the use of low dose leflunomide now that no evidence of active inflammatory disease activity. Resolved Problems Problem Noted Date Diagnosed Date Resolved Date Long-Term (Current) Use of Leflunomide 02/16/2008 02/15/2009 Overview (08/01/2020): No evidence of developing side effects. MCTD ELIZABETH 1:320 COAL HAULER+ SSA+ Dx 03/200002/16/2008 02/15/2009 Overview (08/01/2020): Remains in clinical remission on low dose Leflunomide. Will attempts to reduce dose further to once weekly to maintain fpc remission and lab every 3 mo. Unspecified diffuse connective tissue disease 02/16/2008 Immunizations Immunization Administration Dates Next Due ([employer])(12 YR UP) COVID-19 VACCINE - EMERGENCY USE AUTHORIZATION, MRNA, [id number](PF) 30 MCG/0.3 ML IM SUSP 06/29/2020,06/01/2020 Influenza Vaccine Tri Split 4+ Pf Im 03/14/2013 Pneumococcal 13-valent Conjugate Vaccine SCHIP 0 06/20/2019 Pneumococcal Polysaccharide Vaccine 23-leigh IM VF C 06/19/2020 Social History Tobacco Use Types Packs/Day Years Used Date Smoking Tobacco: Never Smokeless Tobacco: Never Alcohol Use Standard Drinks/Week Comments No 0 (1 standard drink = 0.6 oz pur e alcohol) Comments Unknown Sex and Gender Information Value Date Recorded Sex Assigned at Not on file 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 Gender Identity Not on file Sexual Orientation Not on file Last Filed Vital Signs Vital Sign Reading Time Taken Comments Blood Pressure 128/88 08/08/2020 2:39 PM CDT Pulse 96 08/08/2020 2:39 PM CDT Temperature 36.7 C (98 F) 08/08/2020 2:39 PM CDT Respiratory Rate - - Oxygen Saturation - - Inhaled Oxygen Concentration - - Weight 97.1 [...] 75+ series) 2023 COVID-19 Vaccine (3 - season) 2023, 06/01/2020 INFLUENZA VACCINE (#1) 2024 , 08/08/2020, 03/14/2013 Care Teams Automatic Beam Warper Tender Relationship Specialty Start Date End Date Ramos Dixon DO [address] [place] [address] PCP - General Family Practice 03/19/23
--- NOTE | 2024-10-12 17:27 | XRR_ITS ---
PROCEDURE INFORMATION: Exam: XR Chest Exam date and time: 10/12/2024 6:16 PM Age: 74 years old Clinical indication: Other: Weakness TECHNIQUE: Imaging protocol: Radiologic exam of the chest. Views: 1 view. COMPARISON: No relevant prior studies available. FINDINGS: Lungs: Unremarkable. No consolidation. Pleural spaces: Unremarkable. No pleural effusion. No pneumothorax. Heart/Mediastinum: Unremarkable. No cardiomegaly. Bones/joints: Unremarkable. XR/XR chest 1V portable [id number] IMPRESSION: No acute findings.
--- NOTE | 2024-10-12 17:28 | ECG_ITS ---
[facility]: 2024-10[facility]12 Pat Name: Fátima Zaragoza Department: Room: Gender: Female Accessioner: : [email or web address] Requested By: Krystian Barone Order Number: [id number] Giselle MD: Anamaria May M.D. Measurements Intervals [place] Rate: 92 P: 34 VA: 167 QRS: -10 QRSD: 93 T: 19 QT: 347 QTc: 429 Interpretive Statements SINUS RHYTHM LOW QRS VOLTAGE IN PRECORDIAL LEADS [QRS DEFLECTION < 1.0 mV IN CHEST LEADS] No previous ECG available for comparison Electronically Signed On 10-12-2024 19:59:21 CDT by Anamaria May M.D. [email or web address]
[2024-10-12 18:40] LABS: Hematocrit 40.7 % (36-47); Hemoglobin 13.60 g/dL (11.27-16.99); Mean Corpuscular HGB Conc 33.4 g/dL (30-55); Mean Corpuscular Hemoglobin 28.0 pg (27-33); Mean Corpuscular Volume 83.7 fl (85-98); Nucleated Red Blood Cells % 0 %; Platelet Count 240 10^3/cmm (157-399); Red Blood Count 4.86 10^6/uL (3.85-5.65); White Blood Count 8.81 10^3/uL (3.29-11.43)
[2024-10-12 18:49] LABS: Alanine Aminotransferase 15 U/L (0-33); Albumin Level 3.8 g/dL (3.5-5.2); Alkaline Phosphatase 69 U/L (35-105); Anion Gap 16.0 (5-19); Aspartate Amino Transferase 19 U/L (0-32); Blood Urea Nitrogen 11 mg/dL (8-23); Calcium 9.3 mg/dL (8.5-10.5); Carbon Dioxide 27 mmol/L (22-29); Chloride 97 mmol/L (98-107); Creatinine Clr Calc Pharmacy 68.2848; Globulin 3.6 g/dL (1.3-4.6); Glucose 116 mg/dL (65-115); Lipase 46 U/L (13-60); Magnesium 2.0 mg/dL (1.7-2.3); Osmolality Calculated 284 mOsm/kg (285-295); Potassium 3.0 mmol/L (3.5-5.1); Sodium 137 mmol/L (136-145); Total Protein 7.4 g/dL (6.6-8.7)
[2024-10-12 18:51] LABS: Lactic Sepsis W/Reflex 1.5 mmol/L (0.5-2.2)
[2024-10-12 19:26] LABS: Glucose Urine UA Negative (Normal); Nitrate Urine Positive (Negative); Specific Gravity, Urine 1.022 (1.005-1.030)
[2024-10-12 19:29] LABS: Add Urine Microscopic? YES
--- NOTE | 2024-10-12 19:37 | CTR_ITS ---
PROCEDURE INFORMATION: Exam: CT Abdomen And Pelvis With Contrast Exam date and time: 10/12/2024 8:42 PM Age: 74 years old Clinical indication: Abdominal pain; Generalized; Prior surgery; Surgery date: 6+ months; Surgery type: Total hysterectomy; Additional info: Abdominal pain, n/v/d, TECHNIQUE: Imaging protocol: Computed tomography of the abdomen and pelvis with contrast. Radiation optimization: All CT scans at this facility use at least one of these dose optimization techniques: automated exposure control; mA and/or kV adjustment per patient size (includes targeted exams where dose is matched to clinical indication); or iterative reconstruction. Contrast material: OMNIPAQUE 350; Contrast volume: 100 ml; Contrast route: INTRAVENOUS (IV); COMPARISON: CR (CHEST, ) 10/12/2024 6:16 PM RADIATION DOSE METRICS: Total DLP (mGy-cm): 858.9 FINDINGS: Liver: No discrete liver lesions are apparent. Smooth hepatic contour. Gallbladder and biliary ducts: Prior cholecystectomy. Pancreas: No evidence of pancreatitis. No ductal dilation. Spleen: Granulomatous changes in the spleen. Adrenal glands: Adrenal glands are within expected limits. Kidneys and ureters: No renal or ureteral calculi are identified. No hydronephrosis. Stomach and bowel: Some mild hyperemia of bowel loops, most notable in the right colon. No evidence of bowel obstruction, however. Appendix: No evidence of appendicitis. Intraperitoneal space: No free air. No significant fluid collection. Vasculature: No abdominal aortic aneurysm. Lymph nodes: Mild haziness of the root of the mesentery along with some tiny mesenteric lymph nodes, nonspecific. Urinary bladder: Unremarkable as visualized. Reproductive: Prior hysterectomy. Bones/joints: Grade 1 degenerative anterolisthesis of L4 on L5. No acute osseous findings. Soft tissues: Unremarkable. CT/CT abdomen pelvis w con* [id number] IMPRESSION: Findings somewhat suggestive of mild enteritis/enterocolitis.
[2024-10-12] MEDS: ondansetron 2 mg/ML SDV 2 mL 4 MG IVP (20:06)
[2024-10-12] MEDS: cefTRIAXone 1,000 mg SDV 1000 MG IVP (20:12)
[2024-10-12] MEDS: iohexol 350 mg/mL 500 mL Btl (per mL) IV (20:46)
[2024-10-12 20:53] VITALS: BP 166/70; PULSE 111; RESP 16; O2SAT 95
--- NOTE | 2024-10-12 21:09 | ED_ITS ---
HPI - Nausea/Vomiting/Diarrhea 2 General: Chief complaint: Nausea/Vomiting/Diarrhea Stated complaint: Fall, N/V/D, Weakness Time Seen by Provider: 10/12/24 17:06 History of Present Illness: Patient is a 74-year-old female who presents to the emergency department with complaints of nausea, vomiting, diarrhea, and significant weakness that began today around 14:00. She reports having elevated blood pressure for a couple of days prior to the onset of gastrointestinal symptoms. The patient experienced one episode of vomiting and one episode of watery diarrhea. She denies black or bloody stool. The patient describes feeling extremely weak, stating she had difficulty getting up and had to lean against the bathroom wall for support. She denies chest pain, shortness of breath, or urinary symptoms. The patient denies recent travel, sick contacts, or antibiotic use. She has no history of falls or head trauma. She denies taking blood thinners. Related Data Previous Rx's ?Medication ?Instructions ?Recorded hydrochlorothiazide 25 mg tablet 25 mg PO DAILY bp #90 tabs 10/05/23 losartan 100 mg tablet 100 mg PO DAILY #90 tabs 04/29 potassium chloride 20 mEq 20 meq PO DAILY take with HC TZ #90 03/15/24 tablet,extended release tabs tramadol 50 mg tablet 50 mg PO Q8H PRN pain #10 ta bs 07/16/24 escitalopram oxalate 10 mg tablet 10 mg PO DAILY stres s reactions 08/30/24 #30 tabs ciprofloxacin HCl 500 mg tablet 500 mg PO Q12H #14 tab s 10/12/24 (Cipro) Allergies Allergy/AdvReac Type Severity Reaction Status Date / Time hydroxychloroquine (From Allergy Severe rash Verified 09/21/24 07:36 Plaquenil) codeine Allergy Intermediate nausea/vomi Verified 09/21/24 07:36 ting amlodipine AdvReac edema Uncoded 09/21/24 07:36 PFS ED 2 PFSH: Social History Smoking and tobacco/nicotine status: never used tobacco/nicotine Course 2 Vital Signs: Vital signs: Vital Signs Temperature 98.2 F 10/12/24 17:07 Pulse Rate 111 H 10/12/24 20:53 Respiratory Rate 16 10/12/24 20:53 Blood Pressure 166/70 10/12/24 20:53 Pulse Oximetry 95 10/12/24 20:53 Oxygen Delivery Me thod Room Air 10/12/24 20:53 MDM - Nausea/Vomiting/Diarrhea Medical Decision Making ROS: Constitutional: Positive for weakness. Negative for fever, chills. Cardiovascular: Negative for chest pain, palpitations. Respiratory: Negative for shortness of breath, cough. Gastrointestinal: Positive for nausea, vomiting (one episode), diarrhea (one episode, watery). Negative for abdominal pain, black or bloody stool. Genitourinary: Negative for dysuria, frequency, urgency. Neurological: Negative for headache, dizziness, syncope. All other systems reviewed and negative except as noted in HPI. MEDICATIONS AND ALLERGIES: - Meds: Patient is on oral potassium supplementation - Allergies: None reported PAST HISTORICAL DATA: - PMH: Hypertension, hypokalemia - PSH: Not documented - Social: Not documented PHYSICAL EXAM: General: Alert, nontoxic female in no acute distress. HEENT: Mucous membranes somewhat tacky. Neck: Not documented. Respiratory: Not specifically documented. Cardiac: Not specifically documented. Abdomen: Soft, nondistended, without significant abdominal tenderness. No guarding or rebound. Neuro: Not specifically documented. Extremities: Not documented. INITIAL IMPRESSION AND PLAN: Given the history and presentation, the primary working diagnosis is gastroenteritis with dehydration. Additional considerations include urinary tract infection, electrolyte abnormalities, and possible early sepsis. Based on this initial impression I will order: 1. IV fluid hydration 2. Laboratory studies including CBC, CMP, lactic acid, lipase, and urinalysis 3. Imaging studies including CT abdomen/pelvis and chest X-ray 4. Symptomatic treatment as needed TEST INTERPRETATIONS: - CT Abdomen/Pelvis: Findings consistent with mild enteritis/enterocolitis. No other acute pathology noted. - Chest X-ray: Negative for acute processes. - CBC: WBC 8.8, Hemoglobin 13.6, Platelets 240. Within normal limits. - Chemistry: Potassium 3.0 (low), Blood glucose 116. - Lactic acid: 1.5 (normal). - LFTs: Normal. - Lipase: 48 (normal). - Urinalysis: Positive for UTI with 2+ leukocyte esterase, positive nitrites, 11-20 WBCs, and significant bacteriuria. CONSIDERED BUT NOT PERFORMED: Oral potassium replacement was considered but not administered in the ED as the patient declined and stated she would prefer to continue her regular PO potassium replacement at home. FINAL IMPRESSION: Based on all the above, my clinical impression is most compatible with: 1. Urinary tract infection 2. Mild enteritis/enterocolitis 3. Hypokalemia 4. Dehydration The clinical picture is not currently suggestive of sepsis, acute abdomen, or other serious intra-abdominal pathology. Although other conditions were also considered, they were deemed unlikely based on the clinical information available. CLINICAL DISPOSITION: The patient's current condition is stable in my estimation and the most appropriate and indicated disposition at this time is discharge home with oral antibiotics. The patient is safe for discharge home as she has shown clinical improvement following IV fluid hydration. Her vital signs have normalized with a blood pressure of 131/89 and heart rate of 90. She reports feeling much better on reassessment and is comfortable with discharge. Her urinary tract infection has been initially treated with IV Rocephin and she will continue treatment with oral ciprofloxacin. Her enteritis appears mild on imaging with no concerning features. While her potassium is low at 3.0, she is on home potassium supplementation and has declined additional replacement in the ED, stating she will continue her regular regimen at home. RISK STRATIFICATION AND CLINICAL DECISION RULES APPLIED: No formal clinical decision rules were applied in this case. The patient's presentation, diagnostic findings, and clinical response to treatment guided management decisions. CASE SUMMARY: 74-year-old female presented with acute onset of nausea, vomiting, diarrhea, and significant weakness that began today. Patient had one episode each of vomiting and watery diarrhea. She reported elevated blood pressure for a couple of days prior to GI symptoms. Initial workup revealed hypokalemia (K+ 3.0) and a urinary tract infection with positive nitrites, leukocyte esterase, and significant bacteriuria. CT abdomen/pelvis showed mild enteritis/enterocolitis without other acute pathology. Patient received IV fluids and 1 gram of IV Rocephin in the ED. She declined potassium replacement, preferring to continue her home regimen. Following treatment, the patient reported significant improvement in symptoms with normalized vital signs. She was discharged home with ciprofloxacin for UTI treatment, instructions to continue her potassium supplementation, and appropriate return precautions. SEPSIS COMPLIANCE: Patient does not meet criteria for sepsis. Lactic acid was 1.5, which is within normal limits. Lab Data I reviewed the patient's lab results. 10/12/24 17:55 10/12/24 17:55 Radiology Impressions Chest X-Ray 10/12/24 17:27 IMPRESSION: No acute findings. Abdomen/Pelvis CT 10/12/24 19:37 IMPRESSION: Findings somewhat suggestive of mild enteritis/enterocolitis. Laboratory Results WBC 8.81 10^3/uL (3.29-11.43) 10/12/24 17:55 RBC 4.86 10^6/uL (3.85-5.65) 10/12/24 17:55 Hgb 13.60 g/dL (11.27-16.99) 10/12/24 17:55 Hct 40.7 % (36-47) 10/12/24 17:55 MCV 83.7 fl (85-98) L 10/12/24 17:55 MCH 28.0 pg (27-33) 10/12/24 17:55 MCHC 33.4 g/dL (30-55) 10/12/24 17:55 RDW 13.9 % (12.1-15.1) 10/12/24 17:55 Plt Count 240 10^3/cmm (157-399) 10/12/24 17:55 MPV 9.0 fL (7.4-10.4) 10/12/24 17:55 Neut % (Auto) 84.6 % 10/12/24 17:55 Lymph % (Auto) 8.7 % 10/12/24 17:55 [place] % (Auto) 5.9 % 10/12/24 17:55 Eos % (Auto) 0.0 % 10/12/24 17:55 Baso % (Auto) 0.3 % 10/12/24 17:55 Neut # (Auto) 7.45 10^3/uL (1.8-7.7) 10/12/24 17:55 Lymph # (Auto) 0.8 10^3/uL (0.8-4.8) 10/12/24 17:55 [place] # (Auto) 0.5 10^3/uL (0.2-0.9) 10/12/24 17:55 Eos # (Auto) 0.0 10^3/uL (0.0-0.8) 10/12/24 17:55 Baso # (Auto) 0.0 10^3/uL (0.0-0.1) 10/12/24 17:55 Nucleated RBC % (auto) 0 % 10/12/24 17:55 Nucleated RBCs # 0.0 /100WBC 10/12/24 17:55 Sodium 137 mmol/L (136-145) 10/12/24 17:55 Potassium 3.0 mmol/L (3.5-5.1) L 10/12/24 17:55 Chloride 97 mmol/L (98-107) L 10/12/24 17:55 Carbon Dioxide 27 mmol/L (22-29) 10/12/24 17:55 Anion Gap 16.0 (5-19) 10/12/24 17:55 BUN 11 mg/dL (8-23) 10/12/24 17:55 Creatinine 0.5 mg/dL (0.5-0.9) 10/12/24 17:55 GFR Calculation Not Reportable 10/12/24 17:55 Glucose 116 mg/dL (65-115) H 10/12/24 17:55 Calculated Osmolality 284 mOsm/kg (285-295) L 10/12/24 17:55 Lactic Acid 1.5 mmol/L (0.5-2.2) 10/12/24 17:55 Calcium 9.3 mg/dL (8.5-10.5) 10/12/24 17:55 Magnesium 2.0 mg/dL (1.7-2.3) 10/12/24 17:55 Total Bilirubin 1.1 mg/dL (0.15-1.2) 10/12/24 17:55 AST 19 U/L (0-32) 10/12/24 17:55 ALT 15 U/L (0-33) 10/12/24 17:55 Alkaline Phosphatase 69 U/L (35-105) 10/12/24 17:55 Total Protein 7.4 g/dL (6.6-8.7) 10/12/24 17:55 Albumin 3.8 g/dL (3.5-5.2) 10/12/24 17:55 Globulin 3.6 g/dL (1.3-4.6) 10/12/24 17:55 Lipase 46 U/L (13-60) 10/12/24 17:55 Urine Color Dark yellow (Yellow) A 10/12/24 19:10 Urine Appearance Cloudy (CLEAR) A 10/12/24 19:10 Urine pH 5.5 (5-7) 10/12/24 19:10 Ur Specific [place] 1.022 (1.005-1.030) 10/12/24 19:10 Urine Protein Trace (Negative) A 10/12/24 19:10 Urine Glucose (UA) Negative (Normal) 10/12/24 19:10 Urine Ketones Trace (Negative) 10/12/24 19:10 Urine Blood 2+ (Negative) A 10/12/24 19:10 Urine Nitrate Positive (Negative) A 10/12/24 19:10 Urine Bilirubin Negative (Negative) 10/12/24 19:10 Urine Urobilinogen 1.0 mg/dL (Negative) 10/12/24 19:10 Ur Leukocyte Esterase 2+ (Negative) A 10/12/24 19:10 Urine RBC 6-10 /hpf (0-2) 10/12/24 19:10 Urine WBC 11-20 /hpf (0-5) H 10/12/24 19:10 Ur Squamous Epith Cells 6-10 /hpf (0-5) 10/12/24 19:10 Amorphous Sediment Not Reportable 10/12/24 19:10 Urine Bacteria Exceeds /hpf (NONE) 10/12/24 19:10 Hyaline Casts 4.11 /lpf 10/12/24 19:10 All radiology interpretation(s) finalized by discharge Discharge Plan Discharge Patient Disposition: Home Clinical Impression: Acute UTI, Enteritis, Acute hypokalemia Condition: Stable Prescriptions: New ciprofloxacin HCl [Cipro] 500 mg tablet 500 mg PO Q12H Qty: 14 0RF No Action hydrochlorothiazide 25 mg tablet 25 mg PO DAILY Qty: 90 3RF losartan 100 mg tablet 100 mg PO DAILY Qty: 90 3RF potassium chloride 20 mEq tablet extended release 20 meq PO DAILY Qty: 90 3RF escitalopram oxalate 10 mg tablet 10 mg PO DAILY Qty: 30 5RF tramadol 50 mg tablet 50 mg PO Q8H PRN (Reason: pain) Qty: 10 0RF Discharge Orders: Discharge ED (Routine); Ordered 10/12/24 Ordered By: Krystian Barone Referrals: Ramos Dixon DO [Primary Care Provider, Family Practice] Patient Instructions: Urinary Tract Infection in Women (DC), Enteritis (ED), Opioid Safety, Pain Management, Patient Portal & Marce Instructions Activity Restrictions/Additional Instructions: DISCHARGE INSTRUCTIONS: 1. Diagnosis: Urinary tract infection and mild enteritis/enterocolitis with dehydration 2. Medications: - Take ciprofloxacin as prescribed to complete the full course - Continue your regular potassium supplements as prescribed - You may take [id number] medications for nausea if needed 3. Diet and Hydration: - Drink plenty of fluids (at least 8-10 glasses of water daily) - Start with clear liquids and advance to a regular diet as tolerated - Avoid caffeine, alcohol, and spicy foods until symptoms resolve 4. Activity: - Rest as needed - Resume normal activities gradually as you feel better 5. Follow-up: - Schedule an appointment with your primary care physician within 3-5 days - Bring this discharge summary to your follow-up appointment 6. Return to the Emergency Department immediately if you experience: - Worsening weakness or inability to stand - Persistent vomiting or inability to keep fluids down - High fever (temperature above 101.5?F) - Severe abdominal pain - Blood in urine or stool - Confusion or altered mental status - Any other concerning symptoms Print Language: Maori Coding Level of Care Code ED Assistant Prosecuting Attorney for Jen Christianson
[2024-10-12 21:27] VITALS: BP 153/73; PULSE 98; RESP 16; O2SAT 98
== END 2024-10-12 21:32 | disposition home or self-care (01) ==
PROVIDERS: Emergency Provider Student in an Organized Health Care Education/Training Program; PCP Family Medicine
DX: N39.0 Urinary tract infection, site not specified (principal); K52.9 Noninfective gastroenteritis and colitis, unspecified; E87.6 Hypokalemia
CPT/HCPCS: 36415; 71045; 74177; 80053; 81001; 83605; 83690; 83735; 85025; 87040; 87077; 87086; 87186; 93005; 96361; 96374; 96375; 99285; J0696; J2405; J7030

== ENCOUNTER 2024-10-15 11:38 | Inpatient (IN) | payer MEDICARE, SELFPAY ==
[2024-10-15 11:43] VITALS: BP 104/63; PULSE 93; RESP 15; TEMP 36.9; O2SAT 97; BMI 34.9
--- OUTSIDE RECORDS SUMMARY | 2024-10-15 11:44 | XMS_ITS | Encounter Summary ---
Author Organization [facility] Address [address] [place] [address] Care Team Providers Care Pharmacy Technician Per Diem Name Role Phone Neela German DO Primary Care Provider [phone]- [phone] Encounter Details Date Type Department Care Team (Latest Contact Info) Description 07/13/2000 Outpatient Historical 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 Gender Identity Not on file Sexual Orientation Not on file documented as of this encounter Plan of Treatment Not on file documented as of this encounter Visit Diagnoses Diagnosis Syst lupus erythematosus- Primary Systemic lupus erythematosus Unspecified inflammatory polyarthropathy (CMS/HCC) Unspecified inflammatory polyarthropathy Encounter for long-term (current) use of other medications documented in this encounter Care Teams Pharmacy Technician Per Diem Relationship Specialty Start Date End Date Neela German DO [address] [place] [address] PCP - General Family Practice 08/08/20 documented as of this encounter
--- OUTSIDE RECORDS SUMMARY | 2024-10-15 11:44 | XMS_ITS | Encounter Summary ---
Author Organization [facility] Address [address] [place] [address] Care Team Providers Care Lithograph Printer Name Role Phone Neela German DO Primary Care Provider [phone] Encounter Details Date Type Department Care Team (Late st Contact Info) Description 02/02/2001 Outpatient Historical [facility] Rheumatology- [facility] [place] [address] [place] [phone] David Villanueva DO [address] [facility] [address] [place] [address] DIFF CONNECT TIS DIS NOS (Primary Dx); INFLAMM POLYARTHROP NOS (CMS/HCC); JOINT PAIN-MULT JTS Social History Tobacco Use Types Packs/Day Years Used Date Smoking Tobacco: Never Assessed Comments Unknown Sex and Gender Information Value Date Recorded Sex Assigned at Not on file 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
--- OUTSIDE RECORDS SUMMARY | 2024-10-15 11:44 | XMS_ITS | Clinical Summary ---
Author Organization [facility] Address [address] 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 Resolved Problems Problem Noted Date Diagnosed Date Resolved Date Long-Term (Current) Use of Leflunomide 02/16/2008 02/15/2009 Overview (02/16/2008): No evidence of developing side effects. 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 Will attempts to reduce dose further to once weekly to maintain termite inspector remission and lab every 3 mo. 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
--- OUTSIDE RECORDS SUMMARY | 2024-10-15 11:44 | XMS_ITS | Encounter Summary ---
Author Organization [facility] Address [address] [place] [address] Care Team Providers Care Carpenter'S Assistant Name Role Phone Neela German DO Primary Care Provider [phone]- [phone] Encounter Details Date Type Department Care Team (Late st Contact Info) Description 10/04/2001 Outpatient Historical [facility] [place] [address] [place] [phone] David Villanueva DO [address] [facility] [address] [place] [address] DIFF CONNECT TIS DIS NOS (Primary Dx) Social History Tobacco Use Types Packs/Day Years Used Date Smoking Tobacco: Never Assessed Comments Unknown Sex and Gender Information Value Date Recorded Sex Assigned at Not on file 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
--- OUTSIDE RECORDS SUMMARY | 2024-10-15 11:44 | XMS_ITS | Encounter Summary ---
Author Organization [facility] Address [address] [place] [address] Care Team Providers Care Guidance Adviser Name Role Phone Neela German DO Primary Care Provider [phone] [phone] Encounter Details Date Type Department Care Team (Late st Contact Info) Description 12/28/2006 Outpatient Historical [facility] Rheumatology- [facility] [place] [address] [place] [phone] David Villanueva DO [address] [facility] [address] [place] [address] Unspecified Diffuse Connective Tissue Disease (Primary Dx); Encounter for Long-Term (Current) Use of Other Medications Social History Tobacco Use Types Packs/Day Years Used Date Smoking Tobacco: Never Assessed Comments No Sex and Gender Information Value Date Recorded Sex Assigned at Not on file 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
--- OUTSIDE RECORDS SUMMARY | 2024-10-15 11:44 | XMS_ITS | Encounter Summary ---
Author Organization [facility] Address [address] [place] [address] Care Team Providers Care It Network Administrator Name Role Phone Neela German DO Primary Care Provider [phone]- [phone] Encounter Details Date Type Department Care Team (Late st Contact Info) Description 06/21/2002 Outpatient Historical 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
--- OUTSIDE RECORDS SUMMARY | 2024-10-15 11:44 | XMS_ITS | Encounter Summary ---
Author Organization [facility] Address [address] [place] [address] Care Team Providers Care Obgyn Specialist Name Role Phone Neela German DO Primary Care Provider +1- [phone] Encounter Details Date Type Department Care Team (Late st Contact Info) Description 12/20/2002 Outpatient Historical [facility] Imaging Services-[facility] [place] [address] [place] [address] David Villanueva DO [address] [facility] [address] [place] [address] RHEUMATOID ARTHRITIS (CMS/HCC) (Primary Dx) Social History Tobacco Use Types Packs/Day Years Used Date Smoking Tobacco: Never Assessed Comments Unknown Sex and Gender Information Value Date Recorded Sex Assigned at Not on file 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
--- OUTSIDE RECORDS SUMMARY | 2024-10-15 11:44 | XMS_ITS | Encounter Summary ---
Author Organization [facility] Address [address] [place] [address] Care Team Providers Care Gardening Supervisor Name Role Phone Neela German DO Primary Care Provider +1- [phone] Encounter Details Date Type Department Care Team (Latest Contact Info) Description 09/14/2000 Outpatient Historical [facility] Rheumatology- [facility] [place] [address] [place] [address] David Villanueva DO [address] [facility] [address] [place] [address] Unspecified diffuse connective tissue disease (Primary Dx); Unspecified inflammatory polyarthropathy (CMS/HCC) Social History Tobacco Use Types Packs/Day Years Used Date Smoking Tobacco: Never Assessed Comments Unknown Sex and Gender Information Value Date Recorded Sex Assigned at Not on file 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
--- OUTSIDE RECORDS SUMMARY | 2024-10-15 11:44 | XMS_ITS | Clinical Summary ---
Author Organization [facility] Address [address] [place] [address] Care Team Providers Care Managing Principal Name Role Phone Ramos Dixon DO Primary Care Provider [phone] Allergies Active Allergy Reactions Criticality Noted Date [...] Noted Date Diagnosed Date MCTD ELIZABETH 1:320 SUPERVISOR METAL HANGING+ SSA+ Dx 03/200002/15/2009 Overview (08/02/2020): Will discontinue the use of low dose leflunomide now that no evidence of active inflammatory disease activity. Resolved Problems Problem Noted Date Diagnosed Date Resolved Date Long-Term (Current) Use of Leflunomide 02/16/2008 02/15/2009 Overview (08/01/2020): No evidence of developing side effects. MCTD ELIZABETH 1:320 SUPERVISOR METAL HANGING+ SSA+ Dx 03/200002/16/2008 02/15/2009 Overview (08/01/2020): Remains in clinical remission on low dose Leflunomide. Will attempts to reduce dose further to once weekly to maintain snf remission and lab every 3 mo. 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
--- OUTSIDE RECORDS SUMMARY | 2024-10-15 11:44 | XMS_ITS | Encounter Summary ---
Author Organization [facility] Address [address] [place] [address] Care Team Providers Care Electric Bath Attendant Name Role Phone Neela German DO Primary Care Provider [phone]- [phone] Encounter Details Date Type Department Care Team (Late st Contact Info) Description 07/13/2000 Outpatient Historical [facility] David Villanueva DO [address] [facility] [address] [place] [address] Encounter for long-term (current) use of other medications (Primary Dx); Rheumatoid arthritis(714.0) (CMS/HCC) Social History Tobacco Use Types Packs/Day Years Used Date Smoking Tobacco: Never Assessed Comments Unknown Sex and Gender Information Value Date Recorded Sex Assigned at Not on file 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
--- OUTSIDE RECORDS SUMMARY | 2024-10-15 11:44 | XMS_ITS | Encounter Summary ---
Author Organization [facility] Address [address] [place] [address] Care Team Providers Care Salon Customer Experience Specialist Name Role Phone Neela German DO Primary Care Provider [phone]- [phone] Encounter Details Date Type Department Care Team (Late st Contact Info) Description 09/14/2000 Outpatient Historical [facility] David Villanueva DO [address] [facility] [address] [place] [address] Encounter for long-term (current) use of other medications (Primary Dx); Unspecified diffuse connective tissue disease Social History Tobacco Use Types Packs/Day Years Used Date Smoking Tobacco: Never Assessed Comments Unknown Sex and Gender Information Value Date Recorded Sex Assigned at Not on file Legal Sex Female 3:11 AM LEGAL AID Gender Identity Not on file Sexual Orientation Not on file documented as of this encounter Plan of Treatment Not on file documented as of this encounter Visit Diagnoses Diagnosis Encounter for long-term (current) use of other medications- Primary Unspecified diffuse connective tissue disease documented in this encounter Care Teams Salon Customer Experience Specialist Relationship Specialty Start Date End Date Neela German DO [address] [place] [address] PCP - General Family Practice 08/08/20 documented as of this encounter
--- OUTSIDE RECORDS SUMMARY | 2024-10-15 11:44 | XMS_ITS | Encounter Summary ---
Author Organization [facility] Address [address] [place] [address] Care Team Providers Care Ict Analyst Name Role Phone Neela German DO Primary Care Provider [phone]- [phone] Encounter Details Date Type Department Care Team (Late st Contact Info) Description 05/05/2000 Outpatient Historical [facility] David Villanueva DO [address] [facility] [address] [place] [address] Encounter for long-term (current) use of other medications (Primary Dx); Rheumatoid arthritis(714.0) (CMS/HCC) Social History Tobacco Use Types Packs/Day Years Used Date Smoking Tobacco: Never Assessed Comments Unknown Sex and Gender Information Value Date Recorded Sex Assigned at Not on file Legal 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
--- OUTSIDE RECORDS SUMMARY | 2024-10-15 11:44 | XMS_ITS | Encounter Summary ---
Author Organization [facility] Address [address] [place] [address] Care Team Providers Care Key Filer Name Role Phone Neela German DO Primary Care Provider [phone]- [phone] Encounter Details Date Type Department Care Team (Late st Contact Info) Description 03/10/2000 Outpatient Historical [facility] David Villanueva DO [address] [facility] [address] [place] [address] Syst lupus erythematosus (Primary Dx) Social History Tobacco Use Types Packs/Day Years Used Date Smoking Tobacco: Never Assessed Comments Unknown Sex and Gender Information Value Date Recorded Sex Assigned at Not on file Legal 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
--- OUTSIDE RECORDS SUMMARY | 2024-10-15 11:44 | XMS_ITS | Encounter Summary ---
Author Organization [facility] Address [address] [place] [address] Care Team Providers Care Hand Drawer In Name Role Phone Neela German DO Primary Care Provider [phone]- [phone] Encounter Details Date Type Department Care Team (Late st Contact Info) Description 10/04/2001 Outpatient Historical [facility] Rheumatology- [facility] [place] [address] [place] [address] David Villanueva DO [address] [facility] [address] [place] [address] DIFF CONNECT TIS DIS NOS (Primary Dx); JOINT PAIN-HAND; RADIAL STYLOID TENOSYNOV; AFTERCARE FABRIC COATING SUPERVISOR USE MEDICATN Social History Tobacco Use Types Packs/Day Years Used Date Smoking Tobacco: Never Assessed Comments Unknown Sex and Gender Information Value Date Recorded Sex Assigned at Not on file Legal Sex Female 3:11 AM LINUX ARCHITECT Gender Identity Not on file Sexual Orientation Not on file documented as of this encounter Plan of Treatment Not on file documented as of this encounter Visit Diagnoses Diagnosis Unspecified diffuse connective tissue disease- Primary Pain in joint, hand Radial styloid tenosynovitis Encounter for long-term (current) use of other medications documented in this encounter Care Teams Hand Drawer In Relationship Specialty Start Date End Date Neela German DO [address] [place] [address] PCP - General Family Practice 08/08/20 documented as of this encounter
--- OUTSIDE RECORDS SUMMARY | 2024-10-15 11:44 | XMS_ITS | Encounter Summary ---
Author Organization [facility] Address [address] [place] [address] Care Team Providers Care Signs Cleaner Name Role Phone Neela German DO Primary Care Provider +1 [phone] Encounter Details Date Type Department Care Team (Late st Contact Info) Description 12/20/2002 Outpatient Historical [facility] Rheumatology- [facility] [place] [address] [place] [address] David Villanueva DO [address] [facility] [address] [place] [address] DIFF CONNECT TIS DIS NOS (Primary Dx); INFLAMM POLYARTHROP NOS (CMS/HCC); AFTERCARE INSEAM LEVELER USE MEDICATN Social History Tobacco Use Types Packs/Day Years Used Date Smoking Tobacco: Never Assessed Comments Unknown Sex and Gender Information Value Date Recorded Sex Assigned at Not on file Legal Sex Female 3:11 AM COW 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 Gender Identity Not on file Sexual Orientation Not on file documented as of this encounter Plan of Treatment Not on file documented as of this encounter Visit Diagnoses Diagnosis Unspecified diffuse connective tissue disease- Primary Unspecified inflammatory polyarthropathy (CMS/HCC) Unspecified inflammatory polyarthropathy Encounter for long-term (current) use of other medications documented in this encounter Care Teams Signs Cleaner Relationship Specialty Start Date End Date Neela German DO [address] [place] [address] PCP - General Family Practice 08/08/20 documented as of this encounter
--- OUTSIDE RECORDS SUMMARY | 2024-10-15 11:44 | XMS_ITS | Encounter Summary ---
Author Organization [facility] Address [address] [place] [address] Care Team Providers Care Director Home Health Name Role Phone Neela German DO Primary Care Provider +1 [phone] Encounter Details Date Type Department Care Team (Late st Contact Info) Description 01/20/2005 Outpatient Historical [facility] Rheumatology- [facility] [place] [address] [place] [address] David Villanueva DO [address] [facility] [address] [place] [address] DIFF CONNECT TIS DIS NOS (Primary Dx); AFTERCARE PENITENTIARY USE MEDICATN Social History Tobacco Use Types Packs/Day Years Used Date Smoking Tobacco: Never Assessed Comments Unknown Sex and Gender Information Value Date Recorded Sex Assigned at Not on file Legal Sex Female 3:11 AM CITY JAILER Gender Identity Not on file Sexual Orientation Not on file documented as of this encounter Plan of Treatment Not on file documented as of this encounter Visit Diagnoses Diagnosis Unspecified diffuse connective tissue disease- Primary Encounter for long-term (current) use of other medications documented in this encounter Care Teams Director Home Health Relationship Specialty Start Date End Date Neela German DO [address] [place] [address] PCP - General Family Practice 08/08/20 documented as of this encounter
--- OUTSIDE RECORDS SUMMARY | 2024-10-15 11:44 | XMS_ITS | Encounter Summary ---
Author Organization [facility] Address [address] [place] [address] Care Team Providers Care Food And Beverage Operations Manager Name Role Phone Neela German DO Primary Care Provider [phone]- [phone] Encounter Details Date Type Department Care Team (Latest Contact Info) Description 05/05/2000 Outpatient Historical [facility] Rheumatology- [facility] [place] [address] [place] [address] David Villanueva DO [address] [facility] [address] [place] [address] Unspecified diffuse connective tissue disease (Primary Dx); Unspecified inflammatory polyarthropathy (CMS/HCC); Encounter for long-term (current) use of other medications Social History Tobacco Use Types Packs/Day Years Used Date Smoking Tobacco: Never Assessed Comments Unknown Sex and Gender Information Value Date Recorded Sex Assigned at Not on file Legal Sex Female 3:11 AM STAFF TOXICOLOGIST Gender Identity Not on file Sexual Orientation Not on file documented as of this encounter Plan of Treatment Not on file documented as of this encounter Visit Diagnoses Diagnosis Unspecified diffuse connective tissue disease- Primary Unspecified inflammatory polyarthropathy (CMS/HCC) Unspecified inflammatory polyarthropathy Encounter for long-term (current) use of other medications documented in this encounter Care Teams Food And Beverage Operations Manager Relationship Specialty Start Date End Date Neela Geramn DO [address] [place] [address] PCP - General Family Practice 08/08/20 documented as of this encounter
--- OUTSIDE RECORDS SUMMARY | 2024-10-15 11:44 | XMS_ITS | Encounter Summary ---
Author Organization [facility] Address [address] [place] [address] Care Team Providers Care Liner Worker Name Role Phone Neela German DO Primary Care Provider +1 [phone] Encounter Details Date Type Department Care Team (Late st Contact Info) Description 12/22/2005 Outpatient Historical [facility] Rheumatology- [facility] [place] [address] [place] [address] David Villanueva DO [address] [facility] [address] [place] [address] Unspecified Diffuse Connective Tissue Disease (Primary Dx); Encounter for Long-Term (Current) Use of Other Medications Social History Tobacco Use Types Packs/Day Years Used Date Smoking Tobacco: Never Assessed Comments Unknown Sex and Gender Information Value Date Recorded Sex Assigned at Not on file Legal Sex Female 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
--- OUTSIDE RECORDS SUMMARY | 2024-10-15 11:44 | XMS_ITS | Encounter Summary ---
Author Organization [facility] Address [address] [place] [address] Care Team Providers Care Soap Slabber Name Role Phone Neela German DO Primary Care Provider +1- [phone] Encounter Details Date Type Department Care Team (Late st Contact Info) Description 12/19/2003 Outpatient Historical [facility] Rheumatology- [facility] [place] [address] [place] [address] David Villanueva DO [address] [facility] [address] [place] [address] DIFF CONNECT TIS DIS NOS (Primary Dx) Social History Tobacco Use Types Packs/Day Years Used Date Smoking Tobacco: Never Assessed Comments Unknown Sex and Gender Information Value Date Recorded Sex Assigned at Not on file Legal Sex Female 3:11 AM BOSS MINER Gender Identity Not on file Sexual Orientation Not on file documented as of this encounter Plan of Treatment Not on file documented as of this encounter Visit Diagnoses Diagnosis Unspecified diffuse connective tissue disease- Primary documented in this encounter Care Teams Soap Slabber Relationship Specialty Start Date End Date Neela German DO [address] [place] [address] PCP - General Family Practice 08/08/20 documented as of this encounter
--- OUTSIDE RECORDS SUMMARY | 2024-10-15 11:44 | XMS_ITS | Encounter Summary ---
Author Organization [facility] Address [address] [place] [address] Care Team Providers Care Learning Disabled Teacher Name Role Phone Neela German DO Primary Care Provider +1 [phone] Encounter Details Date Type Department Care Team (Latest Contact Info) Description 03/10/2000 Outpatient Historical [facility] Rheumatology- [place] [place] [address] [place] [address] David Villanueva DO [address] [facility] [address] [place] [address] Unspecified inflammatory polyarthropathy (CMS/HCC) (Primary Dx); Other and unspecified nonspecific immunological findings; Anemia, unspecified; Diseases of lips Social History Tobacco Use Types Packs/Day Years Used Date Smoking Tobacco: Never Assessed Comments Unknown Sex and Gender Information Value Date Recorded Sex Assigned at Not on file Legal Sex Female 3:11 AM CHILD LIFE SPECIALIST Gender Identity Not on file Sexual Orientation Not on file documented as of this encounter Plan of Treatment Not on file documented as of this encounter Visit Diagnoses Diagnosis Unspecified inflammatory polyarthropathy (CMS/HCC)- Primary Unspecified inflammatory polyarthropathy Other and unspecified nonspecific immunological findings Anemia, unspecified Diseases of lips documented in this encounter Care Teams Learning Disabled Teacher Relationship Specialty Start Date End Date Neela German DO [address] [place] [address] PCP - General Family Practice 08/08/20 documented as of this encounter
--- OUTSIDE RECORDS SUMMARY | 2024-10-15 11:44 | XMS_ITS | Encounter Summary ---
Author Organization [facility] Address [address] [place] [address] Care Team Providers Care Banquet Coordinator Name Role Phone Neela German DO Primary Care Provider +1- [phone] Encounter Details Date Type Department Care Team (Late st Contact Info) Description 04/08/2001 Outpatient Historical [facility] Rheumatology- [facility] [place] [address] [place] [address] David Villanueva DO [address] [facility] [address] [place] [address] DIFF CONNECT TIS DIS NOS (Primary Dx); AFTERCARE [facility] USE MEDICATN Social History Tobacco Use Types Packs/Day Years Used Date Smoking Tobacco: Never Assessed Comments Unknown Sex and Gender Information Value Date Recorded Sex Assigned at Not on file Legal Sex Female 3:11 AM NEWS ASSISTANT Gender Identity Not on file Sexual Orientation Not on file documented as of this encounter Plan of Treatment Not on file documented as of this encounter Visit Diagnoses Diagnosis Unspecified diffuse connective tissue disease- Primary Encounter for long-term (current) use of other medications documented in this encounter Care Teams Banquet Coordinator Relationship Specialty Start Date End Date Neela German DO [address] [place] [address] PCP - General Family Practice 08/08/20 documented as of this encounter
--- NOTE | 2024-10-15 12:02 | XRR_ITS ---
PROCEDURE INFORMATION: Exam: XR Chest Exam date and time: 10/15/2024 12:46 PM Age: 74 years old Clinical indication: Dyspnea; Additional info: Weakness TECHNIQUE: Imaging protocol: Radiologic exam of the chest. Views: 1 view. COMPARISON: CR (CHEST, ) 10/12/2024 6:16 PM FINDINGS: Lungs: Pulmonary vessels are within normal limits. Right midlung field calcified granuloma. Left lung is clear. Pleural spaces: No pneumothorax. Heart/Mediastinum: Cardiomediastinal silhouette is within normal limits. Bones/joints: Unremarkable. XR/XR chest 1V portable [id number] IMPRESSION: No acute pulmonary finding.
--- NOTE | 2024-10-15 12:50 | ED_ITS ---
HPI - Weakness 2 General: Chief complaint: Weakness Stated complaint: dehydrated Time Seen by Provider: 10/15/24 12:45 History of Present Illness: 74-year-old female with a history of hyp ertension and obesity who presents the emergency room with weakness, nausea, and some confusion. She was seen in the emergency room 3 days ago and diagnosed with UTI and sent home on Cipro. Family member who was present states she has not been eating and she is very worried about her. Says she seems somewhat confused. She answers questions appropriately with me. Blood pressure is a little soft. She is not tachycardic. No chest pain. No focal motor deficits. No known fevers. Related Data Previous Rx's ?Medication ?Instructions ?Recorded hydrochlorothiazide 25 mg tablet 25 mg PO DAILY bp #90 tabs 10/05/23 losartan 100 mg tablet 100 mg PO DAILY #90 tabs 04/29 potassium chloride 20 mEq 20 meq PO DAILY take with HC TZ #90 03/15/24 tablet,extended release tabs tramadol 50 mg tablet 50 mg PO Q8H PRN pain #10 ta bs 07/16/24 escitalopram oxalate 10 mg tablet 10 mg PO DAILY stres s reactions 08/30/24 #30 tabs ciprofloxacin HCl 500 mg tablet 500 mg PO Q12H #14 tab s 10/12/24 (Cipro) Allergies Allergy/AdvReac Type Severity Reaction Status Date / Time hydroxychloroquine (From Allergy Severe rash Verified 09/21/24 07:36 Plaquenil) codeine Allergy Intermediate nausea/vomi Verified 09/21/24 07:36 ting amlodipine AdvReac edema Uncoded 09/21/24 07:36 Review of Systems 2 Narrative: Constitutional symptoms: Negative except as documented in HPI. Skin symptoms: Negative except as documented in HPI. Eye symptoms: Negative except as documented in HPI. ENMT symptoms: Negative except as documented in HPI. Respiratory symptoms: Negative except as documented in HPI. Cardiovascular symptoms: Negative except as documented in HPI. Gastrointestinal symptoms: Negative except as documented in HPI. Genitourinary symptoms: Negative except as documented in HPI. Musculoskeletal symptoms: Negative except as documented in HPI. Neurologic symptoms: Negative except as documented in HPI. Psychiatric symptoms: Negative except as documented in HPI. Endocrine symptoms: Negative except as documented in HPI. PFSH ED 2 PFSH: Social History Smoking and tobacco/nicotine status: never used tobacco/nicotine Physical Exam 2 Narrative: EXAM NARRATIVE: General: Alert, no acute distress. Skin: Warm, dry. Head: Normocephalic, atraumatic. Neck: Supple, trachea midline. Eye: Extraocular movements are intact. Ears, nose, mouth and throat: Dry oral mucosa Cardiovascular: Regular, Normal peripheral perfusion. Respiratory: Lungs are clear to auscultation, respirations are non-labored, breath sounds are equal, Symmetrical chest wall expansion. Gastrointestinal: Soft, Nontender, Non distended Musculoskeletal: Normal ROM, no deformity. Neurological: Alert and oriented, No focal neurological deficit observed. Psychiatric: Cooperative, appropriate mood & affect. Course 2 Vital Signs: Vital signs: Vital Signs Temperature 98.4 F 10/15/24 11:43 Pulse Rate 86 10/15/24 14:26 Respiratory Rate 16 10/15/24 14:26 Blood Pressure 131/64 10/15/24 14:26 Pulse Oximetry 92 10/15/24 14:26 Oxygen Delivery Me thod Room Air 10/15/24 14:26 MDM - Weakness Medical Decision Making Medical decision making: Differential diagnosis for patient presenting with generalized weakness including but not limited to and based on the above HPI, review of systems and physical exam: Sepsis. Dehydration. Renal failure. Electrolyte abnormalities. Anemia. Congestive heart failure. Hypotension. Coronary syndrome. Hepatitis. Cirrhosis. Infections such as pneumonia, urinary tract infection, Tick bourne illness, Cellulitis, Viral infections including influenza and Covid-19. Workup: labwork and lab/exam driven imaging ordered to evaluate, rule in and rule out above pathologies. Chest x-ray: No acute process. No infiltrate. No pneumothorax. This was reviewed and interpreted by myself the emergency room physician. I also reviewed the radiology report. Lab Review: Laboratory results were reviewed and interpreted by myself the emergency room physician. Leukopenia, thrombocytopenia, hyponatremia, mild elevation liver enzymes all point towards take illness. In with speaking with the patient she has had a recent tick bite. She no longer has signs of urinary tract infection but did not get better as far as her symptoms go with Cipro. I reviewed the patient's medical record. Reviewed ER note from 10/12. Patient went home on Cipro. Urine cultures came back as mixed jeannine. Reexamination: Patient remains slightly confused. No increased work of breathing no focal motor deficits. Dry oral mucosa Consultation: I spoke with Dr. Smith who is on-call for the hospital service who agrees to admission. Assessment and plan: Dehydration Encephalopathy Probable tick illness Hypokalemia Hyponatremia Thrombocytopenia Transaminitis ?IV doxycycline and IV fluids. 40 mill equivalents oral and 40 mill equivalents IV potassium -I discussed the patient with the hospitalist on-call who is admitting the patient. - Discussed findings and plan with patient. Answered any questions. - All laboratory values were reviewed and interpreted personally by myself, the ER physician - All imaging was reviewed and interpreted personally by myself, the ER physician. - Evaluation and treatment of this problem were appropriate in the emergency setting Lab Data 10/15/24 13:18 10/15/24 13:18 Radiology Impressions Chest X-Ray 10/15/24 12:02 IMPRESSION: No acute pulmonary finding. Laboratory Results WBC 4.19 10^3/uL (3.29-11.43) 10/15/24 13:18 RBC 4.77 10^6/uL (3.85-5.65) 10/15/24 13:18 Hgb 13.00 g/dL (11.27-16.99) 10/15/24 13:18 Hct 37.8 % (36-47) 10/15/24 13:18 MCV 79.2 fl (85-98) L 10/15/24 13:18 MCH 27.3 pg (27-33) 10/15/24 13:18 MCHC 34.4 g/dL (30-55) 10/15/24 13:18 RDW 14.5 % (12.1-15.1) 10/15/24 13:18 Plt Count 100 10^3/cmm (157-399) L 10/15/24 13:18 MPV 11.3 fL (7.4-10.4) H 10/15/24 13:18 Neut % (Auto) 66.4 % 10/15/24 13:18 Lymph % (Auto) 22.9 % 10/15/24 13:18 Alfalfa % (Auto) 9.5 % 10/15/24 13:18 Eos % (Auto) 0.0 % 10/15/24 13:18 Baso % (Auto) 0.5 % 10/15/24 13:18 Neut # (Auto) 2.78 10^3/uL (1.8-7.7) 10/15/24 13:18 Lymph # (Auto) 1.0 10^3/uL (0.8-4.8) 10/15/24 13:18 Alfalfa # (Auto) 0.4 10^3/uL (0.2-0.9) 10/15/24 13:18 Eos # (Auto) 0.0 10^3/uL (0.0-0.8) 10/15/24 13:18 Baso # (Auto) 0.0 10^3/uL (0.0-0.1) 10/15/24 13:18 Nucleated RBC % (auto) 0 % 10/15/24 13:18 Nucleated RBCs # 0.0 /100WBC 10/15/24 13:18 Sodium 130 mmol/L (136-145) L 10/15/24 13:18 Potassium 2.8 mmol/L (3.5-5.1) L* 10/15/24 13:18 Chloride 91 mmol/L (98-107) L 10/15/24 13:18 Carbon Dioxide 25 mmol/L (22-29) 10/15/24 13:18 Anion Gap 16.8 (5-19) 10/15/24 13:18 BUN 10 mg/dL (8-23) 10/15/24 13:18 Creatinine 0.6 mg/dL (0.5-0.9) 10/15/24 13:18 GFR Calculation Not Reportable 10/15/24 13:18 Glucose 121 mg/dL (65-115) H 10/15/24 13:18 Calculated Osmolality 270 mOsm/kg (285-295) L 10/15/24 13:18 Lactic Acid 1.6 mmol/L (0.5-2.2) 10/15/24 13:18 Calcium 8.7 mg/dL (8.5-10.5) 10/15/24 13:18 Total Bilirubin 1.6 mg/dL (0.15-1.2) H 10/15/24 13:18 AST 115 U/L (0-32) H 10/15/24 13:18 ALT 58 U/L (0-33) H 10/15/24 13:18 Alkaline Phosphatase 57 U/L (35-105) 10/15/24 13:18 C-Reactive Protein 72.1 mg/L (0.0-4.9) H 10/15/24 13:18 Total Protein 6.9 g/dL (6.6-8.7) 10/15/24 13:18 Albumin 3.3 g/dL (3.5-5.2) L 10/15/24 13:18 Globulin 3.6 g/dL (1.3-4.6) 10/15/24 13:18 Lipase 71 U/L (13-60) H 10/15/24 13:18 Urine Color [place] (Yellow) A 10/15/24 13:36 Urine Appearance Clear (CLEAR) 10/15/24 13:36 Urine pH 5.5 (5-7) 10/15/24 13:36 Ur Specific [place] 1.021 (1.005-1.030) 10/15/24 13:36 Urine Protein 2+ (Negative) A 10/15/24 13:36 Urine Glucose (UA) Negative (Normal) 10/15/24 13:36 Urine Ketones Trace (Negative) 10/15/24 13:36 Urine Blood Negative (Negative) 10/15/24 13:36 Urine Nitrate Negative (Negative) 10/15/24 13:36 Urine Bilirubin 1+ (Negative) H 10/15/24 13:36 Urine Urobilinogen 0.2 mg/dL (Negative) 10/15/24 13:36 Ur Leukocyte Esterase 1+ (Negative) A 10/15/24 13:36 Urine RBC 0-2 /hpf (0-2) 10/15/24 13:36 Urine WBC 6-10 /hpf (0-5) 10/15/24 13:36 Ur Squamous Epith Cells 0-5 /hpf (0-5) 10/15/24 13:36 Amorphous Sediment Not Reportable 10/15/24 13:36 Urine Bacteria None seen /hpf (NONE) 10/15/24 13:36 Hyaline Casts 1.65 /lpf 10/15/24 13:36 All radiology interpretation(s) finalized by discharge Discharge Plan Discharge Patient Disposition: Admitted As Inpatient Clinical Impression: Weakness, Encephalopathy, At high risk for tick borne illness, Dehydration Condition: Stable Coding Level of Care Code ED [employer] Negative for Jen Christianson
[2024-10-15 13:26] VITALS: BP 108/68; PULSE 103; O2SAT 94
[2024-10-15 13:32] LABS: Hematocrit 37.8 % (36-47); Hemoglobin 13.00 g/dL (11.27-16.99); Mean Corpuscular HGB Conc 34.4 g/dL (30-55); Mean Corpuscular Hemoglobin 27.3 pg (27-33); Mean Corpuscular Volume 79.2 fl (85-98); Nucleated Red Blood Cells % 0 %; Platelet Count 100 10^3/cmm (157-399); Red Blood Count 4.77 10^6/uL (3.85-5.65); White Blood Count 4.19 10^3/uL (3.29-11.43)
--- NOTE | 2024-10-15 13:37 | PC.NURSE ---
PATIENT HAS SKIN BREAK DOWN NOTED IN PANNUS AREA AND VAGINAL PERIAREA.
[2024-10-15 13:41] LABS: Glucose Urine UA Negative (Normal); Nitrate Urine Negative (Negative); Specific Gravity, Urine 1.021 (1.005-1.030)
[2024-10-15 13:47] LABS: Alanine Aminotransferase 58 U/L (0-33); Albumin Level 3.3 g/dL (3.5-5.2); Alkaline Phosphatase 57 U/L (35-105); Anion Gap 16.8 (5-19); Aspartate Amino Transferase 115 U/L (0-32); Blood Urea Nitrogen 10 mg/dL (8-23); Calcium 8.7 mg/dL (8.5-10.5); Carbon Dioxide 25 mmol/L (22-29); Chloride 91 mmol/L (98-107); Creatinine Clr Calc Pharmacy 68.2848; Globulin 3.6 g/dL (1.3-4.6); Glucose 121 mg/dL (65-115); Lipase 71 U/L (13-60); Osmolality Calculated 270 mOsm/kg (285-295); Sodium 130 mmol/L (136-145); Total Protein 6.9 g/dL (6.6-8.7)
[2024-10-15 13:48] LABS: Lactic Sepsis W/Reflex 1.6 mmol/L (0.5-2.2)
[2024-10-15 13:49] LABS: Potassium 2.8 mmol/L (3.5-5.1)
[2024-10-15 14:00] LABS: UA Slide Review UA Slide Review Perf
[2024-10-15] MEDS: potassium chloride oral liq 20 mEq/15 mL UDC 40 MEQ PO (14:04)
[2024-10-15] MEDS: lidocaine 1% 5 ML in potassium chloride premix 100 ML 26.25 ML IV (14:05)
[2024-10-15] MEDS: doxycycline 100 MG in sodium chloride 0.9% (plus) 100 ML IV (14:24)
[2024-10-15 14:26] VITALS: BP 131/64; PULSE 86; RESP 16; O2SAT 92
[2024-10-15 16:27] LABS: Potassium, Radom Urine 40 mmol/L; Urine Random Chloride 77 mmol/L; Urine Random Sodium 47 mmol/L
--- NOTE | 2024-10-15 16:27 | P.HP_ITS ---
Providers/Chief Complaint 2 Admitting Physician: John Smith MD Primary Care Provider: Ramos Dixon DO Chief Complaint: dehydrated History of Present Illness Fátima Zaragoza is a 74 year old female with past medical history of hypertension presents to the ER today because of weakness, tiredness which has been ongoing for last 5 days along with episodes of multiple diarrhea. She was in the ER few days ago on 10/12 on which she was diagnosed of having a UTI and discharged home on oral ciprofloxacin. At that time CT abdomen pelvis was concerning for possible enteritis. Today she presented because of worsening symptoms of weakness and tiredness. Urine culture from 10/12 growing gram-negative rods.Blood work today shows severe hypokalemia of 2.8, sodium 130. Patient laying comfortably in bed on examination awake and alert, tired appearing, dehydrated Review of Systems 2 General: Reports: 10 or more systems reviewed and unremarkable except in HPI and below Const: Denies: fever(s), chills, body aches, change in appetite, change in weight, malaise, night sweats, diaphoresis, change in sleep pattern, daytime sleepiness or snoring Eyes: Denies: change in vision, blurry vision, photophobia, eye discomfort or eye discharge ENMT: Denies: throat pain, enlarged tonsils, hoarseness, mouth pain, oral sores, dry mouth, tinnitus, nasal congestion or post nasal drip Card: Denies: chest pain, palpitations, irregular heart rhythm, edema, swelling of feet/ankles, lightheadedness, syncope, pre-syncope, dyspnea on exertion, orthopnea, leg pain with exertion or acrocyanosis Resp: Denies: dyspnea, productive cough, non-productive cough, wheezing, stridor, pain on inspiration, change in phlegm color, hemoptysis or chest congestion GI: Denies: abdominal pain, nausea, vomiting, hematemesis, coffee ground emesis, dysphagia, heartburn, diarrhea, constipation, bloating, GI cramping, change in bowel habits, pain on defecation, hematochezia or melena : Denies: flank pain, dysuria, urinary frequency, urinary urgency, urinary hesitancy, nocturia or hematuria Musc: Denies: neck pain, back pain, extremity pain, joint pain, joint swelling, joint redness, joint stiffness or limited range of motion Neuro: Denies: headache(s), numbness in extremities, weakness in extremities, sensory changes, lack of coordination, difficulty walking, frequent falls, dizziness, vertigo, confusion, Slurred speech present, difficulty communicating thoughts or seizure-like activity Psych: Denies: anxiety, depression, mood swings, panic attacks, hopelessness or irritability Endo: Denies: polyuria, polydipsia, tired all the time, cold intolerance, excessive sweating, flushing or heat intolerance Renny/Lymph: Denies: easy bruising or easy bleeding All/Imm: Denies: tongue swelling, facial swelling or acute wheezing Medications/Allergies Home Medications ?Medication ?Instructions ?Recorded ?Confirmed ?Last Taken ?Type hydrochlorothiazide 25 mg tablet 25 mg PO DAILY bp #90 tabs 10/05/23 10/15/24 10/15/24 Rx losartan 100 mg tablet 100 mg PO DAILY #90 tabs 04/2910/15/24 10/15/24 Rx potassium chloride 20 mEq 20 meq PO DAILY take with HC TZ #90 03/15/24 10/15/24 10/15/24 Rx tablet,extended release tabs tramadol 50 mg tablet 50 mg PO Q8H PRN pain #10 ta bs 07/16/24 10/15/24 Unknown Rx escitalopram oxalate 10 mg tablet 10 mg PO DAILY stres s reactions 08/30/24 10/15/24 10/15/24 Rx #30 tabs ciprofloxacin HCl 500 mg tablet 500 mg PO Q12H #14 tab s 10/12/24 10/15/24 10/15/24 Rx (Cipro) Allergies Allergy/AdvReac Type Severity Reaction Status Date / Time hydroxychloroquine (From Allergy Severe rash Verified 09/21/24 07:36 Plaquenil) codeine Allergy Intermediate nausea/vomi Verified 09/21/24 07:36 ting amlodipine AdvReac edema Uncoded 09/21/24 07:36 PFSH Acute 2 PFSH: Medical History (Updated 10/15/24 @ 16:32 by John Smith MD) Venous insufficiency Hypertension Social History (Updated 10/15/24 @ 16:36 by John Smith MD) Smoking and tobacco/nicotine status: never used tobacco/nicotine Alcohol intake: never Substance/Drug Use: never Caregiver/support person: Yes Lives independently: Yes Household members: family Housing: House Vitals/I&O/Wt Last Vital Signs Temp 98.4 F 10/15/24 11:43 Pulse 86 10/15/24 14:26 Resp 16 10/15/24 14:26 BP 131/64 10/15/24 14:26 Pulse Ox 92 10/15/24 14:26 O2 Del Method Room Air 10/15/24 14:26 10/15/24 10/15/24 10/15/24 06:59 14:59 22:59 Intake Total 1100 / 1100 Balance 1100 / 1100 Weight last 48 hrs Weight 95.254 kg Physical Exam 2 Narrative: General: No acute distress, AO x3, dehydrated, weak appearing HEENT: PERRLA, pupils bilaterally equal and reactive Chest: Normal vesicular breath sounds, no added sounds, equal good air entry bilaterally CVS: S1-S2 regular, no murmurs, no tachycardia, no gallops, no rubs Abdomen: Soft, nontender, no organomegaly, bowel sounds present Neuro: No focal deficits, no facial deformity, AO x3, power 5/5 in all limbs Data 10/15/24 13:18 10/15/24 13:18 Micro: Microbiology 10/15/24 13:21 Blood Culture - Preliminary Blood SPECIMEN COLLECTED 10/15/24 13:18 Blood Culture - Preliminary Blood SPECIMEN COLLECTED A&P Assessment and plan 1. Weakness: Most likely in setting of dehydration and acute hypokalemia along with hyponatremia. Physical therapy evaluation. 2. Acute hypokalemia: Potassium of 2.8. Most likely in setting of dehydration from multiple episode diarrhea and home use of hydrochlorothiazide. Received 40 mEq of oral potassium and IV potassium in ER. Start on NS with 20 mEq of potassium. Repeat stat potassium level. Will replace accordingly. 3. Enteritis: Seen on CT abdomen pelvis few days ago. Complaining of multiple episode diarrhea. Follow-up blood culture. Check stool studies. Basically start patient on IV Zosyn for now. 4. Hyponatremia: IV fluid as above. Repeat BMP in AM. 5. Hypertension: Goal blood pressure less than 140/90 mmHg. Hold off on home dose of hydrochlorothiazide for now. Continue with losartan. Uptitrate as for goal blood pressure. 6. Dehydration: Plan: Transaminitis: Most likely in setting of dehydration. Postcholecystectomy. Monitor CMP daily. Full code Regular diet Protonix for PUD prophylaxis Heparin 5000 every 12 hourly for DVT prophylaxis. PDMP PDMP Reviewed: Not Reviewed Attestations 2 Medical Necessity Statement*: Admission for more than 2 midnights for management of weakness and tiredness due to dehydration from enteritis, acute hypokalemia Diagnoses Weakness R53.1 Acute hypokalemia E87.6 Enteritis K52.9 Hyponatremia E87.1 Hypertension I10 Dehydration E86.0
[2024-10-15 16:31] LABS: Procalcitonin 0.48 ng/mL (0-0.5)
[2024-10-15 16:39] VITALS: BP 136/73; PULSE 85; RESP 18; TEMP 37.6; O2SAT 95; BMI 33.0
[2024-10-15 16:48] VITALS: BP 112/62; PULSE 94; O2SAT 92
[2024-10-15 17:07] LABS: Iron 32 ug/dL (37-145); Total Iron Binding Capacity 248 mcg/dl; Unsaturated Iron Binding 216 ug/dL (112-347)
[2024-10-15] MEDS: sodium chlor 0.9% + KCl 20 mEq 20 MEQ/1,000 ML BAG 100 MEQ IV (17:16)
[2024-10-15] MEDS: heparin 5,000 unit/mL INJ 1 mL 5000 UNIT SUBCUT (17:16)
[2024-10-15] MEDS: piperacillin-tazobactam 3.375 GM in sodium chloride 0.9% (plus) 50 ML IV (17:16)
[2024-10-15] MEDS: pantoprazole 40 mg SDV IVP (17:16)
[2024-10-15 17:38] LABS: Thyroid Stimulating Hormone 1.08 uIU/mL (0.27-4.20); Vitamin B12 404 pg/mL (232-1245)
[2024-10-15 17:41] LABS: Lactic Sepsis W/Reflex 1.3 mmol/L (0.5-2.2)
[2024-10-15 20:00] VITALS: BP 104/63; PULSE 72; RESP 15; TEMP 37.1; O2SAT 93
[2024-10-15 20:33] LABS: Potassium 3.8 mmol/L (3.5-5.1)
--- NOTE | 2024-10-15 20:33 | ECG_ITS ---
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 Measurements Intervals [place] Rate: 122 P: 37 MI: 206 QRS: 26 QRSD: 85 T: 20 QT: 352 QTc: 503 Interpretive Statements SINUS TACHYCARDIA WITH OCCASIONAL SUPRAVENTRICULAR PREMATURE COMPLEXES ABNORMAL RHYTHM ECG Compared to ECG 10/12/2024 19:21:46 Sinus rhythm no longer present Electronically Signed On 10-18-2024 10:08:35 CDT by Anamaria May M.D. [email or web address]
[2024-10-16] VITALS (8 sets, daily range): BP systolic 114–160; BP diastolic 64–80; PULSE 75–94; RESP 16–19; TEMP 36.4–36.8; O2SAT 94–96
[2024-10-16] MEDS: piperacillin-tazobactam 3.375 GM in sodium chloride 0.9% (plus) 50 ML IV ×3 (01:38→17:11)
[2024-10-16 02:03] LABS: Hematocrit 34.1 % (36-47); Hemoglobin 11.30 g/dL (11.27-16.99); Mean Corpuscular HGB Conc 33.1 g/dL (30-55); Mean Corpuscular Hemoglobin 27.0 pg (27-33); Mean Corpuscular Volume 81.4 fl (85-98); Nucleated Red Blood Cells % 0 %; Platelet Count 86 10^3/cmm (157-399); Red Blood Count 4.19 10^6/uL (3.85-5.65); White Blood Count 4.19 10^3/uL (3.29-11.43)
[2024-10-16 02:24] LABS: Troponin T (5th) Once 21 ng/L (0-10)
[2024-10-16 02:36] LABS: Alanine Aminotransferase 51 U/L (0-33); Albumin Level 3.0 g/dL (3.5-5.2); Alkaline Phosphatase 50 U/L (35-105); Anion Gap 14.2 (5-19); Aspartate Amino Transferase 80 U/L (0-32); Blood Urea Nitrogen 10 mg/dL (8-23); Calcium 8.1 mg/dL (8.5-10.5); Carbon Dioxide 25 mmol/L (22-29); Chloride 101 mmol/L (98-107); Creatinine Clr Calc Pharmacy 68.6800; Globulin 2.8 g/dL (1.3-4.6); Glucose 100 mg/dL (65-115); Magnesium 2.0 mg/dL (1.7-2.3); Osmolality Calculated 283 mOsm/kg (285-295); Potassium 3.2 mmol/L (3.5-5.1); Sodium 137 mmol/L (136-145); Total Protein 5.8 g/dL (6.6-8.7)
[2024-10-16 03:06] LABS: Cholesterol 100 mg/dL (0-200); HDL Cholesterol 19 mg/dL (60-100); Triglycerides 180 mg/dL (0-150)
[2024-10-16 03:12] LABS: Procalcitonin 0.42 ng/mL (0-0.5)
[2024-10-16] MEDS: sodium chlor 0.9% + KCl 20 mEq 20 MEQ/1,000 ML BAG 100 MEQ IV ×2 (03:25→14:33)
[2024-10-16] MEDS: heparin 5,000 unit/mL INJ 1 mL 5000 UNIT SUBCUT ×2 (05:48→17:10)
[2024-10-16 10:50] LABS: C.Diff PCR (Lab) NEGATIVE (Negative)
--- NOTE | 2024-10-16 11:05 | P.PN_ITS ---
Subjective 2 Subjective: No acute events overnight. Patient states she is feeling slightly better. Has had multiple bowel movements but no diarrhea. Has remained hemodynamically stable. Vitals/I&O/Wt Last Vital Signs Temp 97.5 F L 10/16/24 07:39 Pulse 85 10/16/24 07:39 Resp 19 H 10/16/24 07:39 BP 116/64 10/16/24 09:43 Pulse Ox 96 10/16/24 07:39 O2 Del Method Room Air 10/16/24 07:39 10/15/24 10/16/24 10/16/24 22:59 06:59 14:59 Intake Total 1305 / 1305 1050 / 2355 360 / 360 Output Total 140 / 140 Balance 1165 / 1165 1050 / 2215 360 / 360 Weight last 48 hrs Weight 92.397 kg Weight 92.85 kg Weight 95.254 kg Physical Exam 2 Narrative: General: No acute distress, AO x3, weak appearing HEENT: PERRLA, pupils bilaterally equal and reactive Chest: Normal vesicular breath sounds, no added sounds, equal good air entry bilaterally CVS: S1-S2 regular, no murmurs, no tachycardia, no gallops, no rubs Abdomen: Soft, nontender, no organomegaly, bowel sounds present Neuro: No focal deficits, no facial deformity, AO x3, power 5/5 in all limbs Data 10/16/24 01:05 10/16/24 01:05 Micro: Microbiology 10/16/24 09:57 Stool Lactoferrin - Final Stool Occult Blood (FIT) - Final 10/15/24 13:36 Bacterial Antigens - Final Urine Kidney 10/15/24 13:21 Blood Culture - Preliminary Blood SPECIMEN COLLECTED 10/15/24 13:18 Blood Culture - Preliminary Blood SPECIMEN COLLECTED A&P Assessment and plan 1. Weakness: Most likely in setting of dehydration and acute hypokalemia along with hyponatremia. Physical therapy evaluation. 2. Acute hypokalemia: Potassium stable at 3.2 today. Continue with IV fluids with potassium replacement at 100 cc/h. Oral 40 mEq potassium replacement. Repeat potassium level in afternoon. 3. Enteritis: Seen on CT abdomen pelvis few days ago. Complaining of multiple episode diarrhea. Follow-up blood culture. Stool studies awaited. Continue with empiric Zosyn. 4. Hyponatremia: IV fluid as above. Repeat BMP in AM. 5. Hypertension: Goal blood pressure less than 140/90 mmHg. Hold off on home dose of hydrochlorothiazide for now. Continue with losartan. Uptitrate as for goal blood pressure. 6. Dehydration: 7. Arrhythmia: On monitoring analyst concerns for possible APCs versus atrial fibrillation. EKG does show sinus rhythm. Could be in setting of electrolyte abnormality. Patient will benefit with event monitor as outpatient for further evaluation. If concerns for A-fib will need to have anticoagulation for stroke prevention. Discussed in detail with the patient and she verbalized understanding. Telemetry monitoring Plan: Transaminitis: Improving. Most likely in setting of dehydration. Postcholecystectomy. Monitor CMP daily. Full code Regular diet Protonix for PUD prophylaxis Heparin 5000 every 12 hourly for DVT prophylaxis. PDMP PDMP Reviewed: Not Reviewed Attestations 2 Medical Necessity Statement*: Requires further hospitalization for management of hypokalemia in setting of diarrhea in a patient with enteritis, arrhythmia with concerns for possible A- fib due to electrolyte abnormalities Diagnoses Weakness R53.1 Acute hypokalemia E87.6 Enteritis K52.9 Hyponatremia E87.1 Hypertension I10 Dehydration E86.0 Arrhythmia I49.9
[2024-10-16] MEDS: pantoprazole 40 mg SDV IVP (17:10)
[2024-10-16 17:26] LABS: Potassium 4.5 mmol/L (3.5-5.1)
[2024-10-17] VITALS (8 sets, daily range): BP systolic 108–152; BP diastolic 68–86; PULSE 70–100; RESP 16–18; TEMP 36.7–36.9; O2SAT 92–98
[2024-10-17] MEDS: piperacillin-tazobactam 3.375 GM in sodium chloride 0.9% (plus) 50 ML IV ×3 (01:19→16:33)
[2024-10-17] MEDS: heparin 5,000 unit/mL INJ 1 mL 5000 UNIT SUBCUT ×2 (04:33→16:33)
[2024-10-17 05:15] LABS: Hematocrit 32.6 % (36-47); Hemoglobin 10.80 g/dL (11.27-16.99); Mean Corpuscular HGB Conc 33.1 g/dL (30-55); Mean Corpuscular Hemoglobin 27.9 pg (27-33); Mean Corpuscular Volume 84.2 fl (85-98); Nucleated Red Blood Cells % 0 %; Platelet Count 120 10^3/cmm (157-399); Red Blood Count 3.87 10^6/uL (3.85-5.65); White Blood Count 8.61 10^3/uL (3.29-11.43)
[2024-10-17 05:43] LABS: Alanine Aminotransferase 40 U/L (0-33); Albumin Level 2.9 g/dL (3.5-5.2); Alkaline Phosphatase 55 U/L (35-105); Anion Gap 12.6 (5-19); Aspartate Amino Transferase 48 U/L (0-32); Blood Urea Nitrogen 8 mg/dL (8-23); Calcium 8.2 mg/dL (8.5-10.5); Carbon Dioxide 25 mmol/L (22-29); Chloride 103 mmol/L (98-107); Creatinine Clr Calc Pharmacy 68.5066; Globulin 2.9 g/dL (1.3-4.6); Glucose 96 mg/dL (65-115); Magnesium 2.0 mg/dL (1.7-2.3); Osmolality Calculated 282 mOsm/kg (285-295); Potassium 3.6 mmol/L (3.5-5.1); Sodium 137 mmol/L (136-145); Total Protein 5.8 g/dL (6.6-8.7)
--- NOTE | 2024-10-17 10:03 | PC.SOCIAL ---
IMM Update pg 2 of IMM Updated and reviewed w/ patient. Copy provided and copy dated, initialed and placed in chart.
[2024-10-17 10:29] LABS: Estmated Average Glucose 114; Hemoglobin A1C 5.6 % (4.0-6.0)
--- NOTE | 2024-10-17 12:35 | P.PN_ITS ---
Subjective 2 Subjective: seen today family at bedside pt laying in bed diarrhea slowing down feels more energetic today phosphorus 1.7 today Vitals/I&O/Wt Last Vital Signs Temp 98.3 F 10/17/24 11:30 Pulse 94 10/17/24 11:30 Resp 16 10/17/24 11:30 BP 108/68 10/17/24 11:30 Pulse Ox 96 10/17/24 11:30 O2 Del Method Room Air 10/17/24 11:30 10/16/24 10/17/24 10/17/24 22:59 06:59 14:59 Intake Total 1650 / 3420 50 / 3470 1410 / 1410 Output Total 600 / 600 800 / 1400 Balance 1050 / 2820 -750 / 2070 1410 / 1410 Weight last 48 hrs Weight 92.391 kg Weight 92.397 kg Weight 92.85 kg Physical Exam 2 Narrative: General: No acute distress, AO x3, HEENT: PERRLA, pupils bilaterally equal and reactive Chest: Normal vesicular breath sounds, no added sounds, equal good air entry bilaterally CVS: S1-S2 regular, no murmurs, Abdomen: Soft, nontender, no organomegaly, bowel sounds present Neuro: No focal deficits, no facial deformity, AO x3, Data 10/17/24 04:34 10/17/24 04:34 Micro: Microbiology 10/15/24 13:18 Blood Culture - Preliminary Blood NEGATIVE TO DATE 10/15/24 13:21 Blood Culture - Preliminary Blood NEGATIVE TO DATE 10/16/24 09:57 Stool Lactoferrin - Final Stool Occult Blood (FIT) - Final A&P Assessment and plan 1. Weakness: Most likely in setting of dehydration and acute hypokalemia along with hyponatremia. Physical therapy evaluation. 2. Acute hypokalemia: Potassium stable at 3.2 today. Continue with IV fluids with potassium replacement at 100 cc/h. Oral 40 mEq potassium replacement. Repeat potassium level in afternoon. 3. Enteritis: Seen on CT abdomen pelvis few days ago. Complaining of multiple episode diarrhea. Follow-up blood culture. Stool studies awaited. Continue with empiric Zosyn. 4. Hyponatremia: IV fluid as above. Repeat BMP in AM. 5. Hypertension: Goal blood pressure less than 140/90 mmHg. Hold off on home dose of hydrochlorothiazide for now. Continue with losartan. Uptitrate as for goal blood pressure. 6. Dehydration: 7. Arrhythmia: On quality assurance monitor final concerns for possible APCs versus atrial fibrillation. EKG does show sinus rhythm. Could be in setting of electrolyte abnormality. Patient will benefit with event monitor as outpatient for further evaluation. If concerns for A-fib will need to have anticoagulation for stroke prevention. Discussed in detail with the patient and she verbalized understanding. Telemetry monitoring Plan: Transaminitis: Improving. Most likely in setting of dehydration. Postcholecystectomy. Monitor CMP daily. Full code Regular diet Protonix for PUD prophylaxis Heparin 5000 every 12 hourly for DVT prophylaxis.. 10/17/2024 seen today phosph at 1.7 order phospha neutra x 3 doses recheck labs in AM continue IV fluids continue zosyn dc on cipro flagyl in next 24-48 hours will need event monitor at dc PDMP PDMP Reviewed: Not Reviewed Attestations 2 Medical Necessity Statement*: Requires further hospitalization for management of hypokalemia in setting of diarrhea in a patient with enteritis, arrhythmia with concerns for possible A- fib due to electrolyte abnormalities has low phosphorus Diagnoses Weakness R53.1 Acute hypokalemia E87.6 Enteritis K52.9 Hyponatremia E87.1 Hypertension I10 Dehydration E86.0 Arrhythmia I49.9
[2024-10-17] MEDS: pantoprazole 40 mg SDV IVP (16:33)
[2024-10-18] MEDS: piperacillin-tazobactam 3.375 GM in sodium chloride 0.9% (plus) 50 ML IV ×2 (00:57→08:41)
[2024-10-18 04:00] VITALS: BP 119/75; PULSE 97; RESP 17; TEMP 37.2; O2SAT 97
[2024-10-18] MEDS: heparin 5,000 unit/mL INJ 1 mL 5000 UNIT SUBCUT (05:26)
[2024-10-18 05:37] LABS: Hematocrit 31.2 % (36-47); Hemoglobin 10.30 g/dL (11.27-16.99); Mean Corpuscular HGB Conc 33.0 g/dL (30-55); Mean Corpuscular Hemoglobin 27.4 pg (27-33); Mean Corpuscular Volume 83.0 fl (85-98); Nucleated Red Blood Cells % 0 %; Platelet Count 189 10^3/cmm (157-399); Red Blood Count 3.76 10^6/uL (3.85-5.65); White Blood Count 11.27 10^3/uL (3.29-11.43)
[2024-10-18 05:57] LABS: Alanine Aminotransferase 49 U/L (0-33); Albumin Level 2.9 g/dL (3.5-5.2); Alkaline Phosphatase 64 U/L (35-105); Anion Gap 13.4 (5-19); Aspartate Amino Transferase 63 U/L (0-32); Blood Urea Nitrogen 6 mg/dL (8-23); Calcium 8.2 mg/dL (8.5-10.5); Carbon Dioxide 25 mmol/L (22-29); Chloride 100 mmol/L (98-107); Creatinine Clr Calc Pharmacy 70.9912; Globulin 3.1 g/dL (1.3-4.6); Glucose 99 mg/dL (65-115); Magnesium 2.0 mg/dL (1.7-2.3); Osmolality Calculated 278 mOsm/kg (285-295); Potassium 3.4 mmol/L (3.5-5.1); Sodium 135 mmol/L (136-145); Total Protein 6.0 g/dL (6.6-8.7)
[2024-10-18 06:09] LABS: Slide Review Slide Review Perform
[2024-10-18 07:36] VITALS: BP 125/68; PULSE 83; RESP 17; TEMP 36.4; O2SAT 96
[2024-10-18 08:34] VITALS: BP 126/64
[2024-10-18 10:19] VITALS: BP 126/64; PULSE 83; RESP 17; TEMP 36.4; O2SAT 96
--- NOTE | 2024-10-18 19:00 | PM.DCS ---
Discharge Providers Date of Admission: 10/15/24 14:27 Date of Discharge: October 19, 2024 Attending Provider at Admission: John Smith MD Attending Provider at Discharge: Thuy Mora MD Primary Care Provider: Ramos Dixon DO Diagnoses at Discharge Discharge Diagnosis 1. Weakness: 2. Acute hypokalemia: 3. Enteritis: 4. Hyponatremia: 5. Hypertension: 6. Dehydration: 7. Arrhythmia: Reason for Visit Reason for Visit: dehydrated Hospital Course Hospital Course Admitted for weakness dehydration hypokalemia with diarrhea. Patient was on Zosyn during hospitalization. Patient's diarrhea improved. Dehydration improved with IV fluids. She was placed on ciprofloxacin and Flagyl at time of discharge. Hydrochlorothiazide was held at time of discharge. There was questionable arrhythmia on telemetry. Event monitor was set up prior to discharge and cardiology follow-up given to the patient. Patient feeling well on day of discharge and will be discharged home in stable condition. Physical Exam Narrative: General: No acute distress, AO x3, HEENT: PERRLA, pupils bilaterally equal and reactive Chest: Normal vesicular breath sounds, no added sounds, equal good air entry bilaterally CVS: S1-S2 regular, no murmurs, Abdomen: Soft, nontender, no organomegaly, bowel sounds present Neuro: No focal deficits, no facial deformity, AO x3, Discharge Data Studies Completed and Pending Completed Studies During Hospitalization Category Date Time Status XR chest 1V portable [id number] Stat Exams 10/15/24 12:02 Completed Pending at discharge Category Date Time Status Blood Culture Stat Lab 10/15/24 13:21 Results OVA and Parasites, Conc and PE Routine Lab 10/15/24 16:39 Received Salmonella / Shigella / Campy Routine Lab 10/15/24 16:39 Received Radiology Impressions Chest X-Ray 10/15/24 12:02 IMPRESSION: No acute pulmonary finding. Laboratory Results WBC 11.27 10^3/uL (3.29-11.43) 10/18/24 04:59 RBC 3.76 10^6/uL (3.85-5.65) L 10/18/24 04:59 Hgb 10.30 g/dL (11.27-16.99) L 10/18/24 04:59 Hct 31.2 % (36-47) L 10/18/24 04:59 MCV 83.0 fl (85-98) L 10/18/24 04:59 MCH 27.4 pg (27-33) 10/18/24 04:59 MCHC 33.0 g/dL (30-55) 10/18/24 04:59 RDW 14.7 % (12.1-15.1) 10/18/24 04:59 Plt Count 189 10^3/cmm (157-399) D 10/18/24 04:59 MPV 10.5 fL (7.4-10.4) H 10/18/24 04:59 Neut % (Auto) 45.1 % 10/18/24 04:59 Lymph % (Auto) 44.5 % 10/18/24 04:59 [place] % (Auto) 7.8 % 10/18/24 04:59 Eos % (Auto) 1.2 % 10/18/24 04:59 Baso % (Auto) 0.4 % 10/18/24 04:59 Neut # (Auto) 5.08 10^3/uL (1.8-7.7) 10/18/24 04:59 Lymph # (Auto) 5.0 10^3/uL (0.8-4.8) H 10/18/24 04:59 [place] # (Auto) 0.9 10^3/uL (0.2-0.9) 10/18/24 04:59 Eos # (Auto) 0.1 10^3/uL (0.0-0.8) 10/18/24 04:59 Baso # (Auto) 0.1 10^3/uL (0.0-0.1) 10/18/24 04:59 Nucleated RBC % (auto) 0 % 10/18/24 04:59 Nucleated RBCs # 0.0 /100WBC 10/18/24 04:59 Sodium 135 mmol/L (136-145) L 10/18/24 04:59 Potassium 3.4 mmol/L (3.5-5.1) L 10/18/24 04:59 Chloride 100 mmol/L (98-107) 10/18/24 04:59 Carbon Dioxide 25 mmol/L (22-29) 10/18/24 04:59 Anion Gap 13.4 (5-19) 10/18/24 04:59 BUN 6 mg/dL (8-23) L 10/18/24 04:59 Creatinine 0.4 mg/dL (0.5-0.9) L 10/18/24 04:59 GFR Calculation Not Reportable 10/18/24 04:59 Glucose 99 mg/dL (65-115) 10/18/24 04:59 Estimat Average Glucose 114 10/17/24 04:34 Hemoglobin A1c 5.6 % (4.0-6.0) 10/17/24 04:34 Calculated Osmolality 278 mOsm/kg (285-295) L 10/18/24 04:59 Lactic Acid 1.3 mmol/L (0.5-2.2) 10/15/24 17:18 Calcium 8.2 mg/dL (8.5-10.5) L 10/18/24 04:59 Phosphorus 2.5 mg/dL (2.5-4.5) 10/18/24 04:59 Magnesium 2.0 mg/dL (1.7-2.3) 10/18/24 04:59 Iron 32 ug/dL (37-145) L 10/15/24 13:18 TIBC 248 mcg/dl 10/15/24 13:18 % Saturation 12.9 % (20-50) L 10/15/24 13:18 Unsat Iron Binding 216 ug/dL (112-347) 10/15/24 13:18 Total Bilirubin 0.9 mg/dL (0.15-1.2) 10/18/24 04:59 AST 63 U/L (0-32) H 10/18/24 04:59 ALT 49 U/L (0-33) H 10/18/24 04:59 Alkaline Phosphatase 64 U/L (35-105) 10/18/24 04:59 Troponin T 5th Gen ng/L 21 ng/L (0-10) H 10/16/24 01:05 C-Reactive Protein 72.1 mg/L (0.0-4.9) H 10/15/24 13:18 Total Protein 6.0 g/dL (6.6-8.7) L 10/18/24 04:59 Albumin 2.9 g/dL (3.5-5.2) L 10/18/24 04:59 Globulin 3.1 g/dL (1.3-4.6) 10/18/24 04:59 Triglycerides 180 mg/dL (0-150) H 10/16/24 01:05 Cholesterol 100 mg/dL (0-200) 10/16/24 01:05 LDL Cholesterol, Calc 45 mg/dL (50-129) L 10/16/24 01:05 HDL Cholesterol 19 mg/dL (60-100) L 10/16/24 01:05 LDL/HDL Ratio 2.37 RATIO (0.00-3.22) 10/16/24 01:05 Cholesterol/HDL Ratio 5.26 mg/dL (0.0-4.40) H 10/16/24 01:05 Lipase 71 U/L (13-60) H 10/15/24 13:18 Vitamin B12 404 pg/mL (232-1245) 10/15/24 13:18 Folate 18.0 ng/mL (4.8-37.3) 10/16/24 01:05 Procalcitonin 0.42 ng/mL (0-0.5) 10/16/24 01:05 TSH 1.08 uIU/mL (0.27-4.20) 10/15/24 13:18 Urine Color [place] (Yellow) A 10/15/24 13:36 Urine Appearance Clear (CLEAR) 10/15/24 13:36 Urine pH 5.5 (5-7) 10/15/24 13:36 Ur Specific [place] 1.021 (1.005-1.030) 10/15/24 13:36 Urine Protein 2+ (Negative) A 10/15/24 13:36 Urine Glucose (UA) Negative (Normal) 10/15/24 13:36 Urine Ketones Trace (Negative) 10/15/24 13:36 Urine Blood Negative (Negative) 10/15/24 13:36 Urine Nitrate Negative (Negative) 10/15/24 13:36 Urine Bilirubin 1+ (Negative) H 10/15/24 13:36 Urine Urobilinogen 0.2 mg/dL (Negative) 10/15/24 13:36 Ur Leukocyte Esterase 1+ (Negative) A 10/15/24 13:36 Urine RBC 0-2 /hpf (0-2) 10/15/24 13:36 Urine WBC 6-10 /hpf (0-5) 10/15/24 13:36 Ur Squamous Epith Cells 0-5 /hpf (0-5) 10/15/24 13:36 Amorphous Sediment Not Reportable 10/15/24 13:36 Urine Bacteria None seen /hpf (NONE) 10/15/24 13:36 Hyaline Casts 1.65 /lpf 10/15/24 13:36 Ur Random Sodium 47 mmol/L 10/15/24 13:36 Ur Random Potassium 40 mmol/L 10/15/24 13:36 Ur Random Chloride 77 mmol/L 10/15/24 13:36 C. difficile (PCR) Negative (Negative) 10/16/24 09:57 Vitals Last Vital Signs Temp 97.5 F L 10/18/24 10:19 Pulse 83 10/18/24 10:19 Resp 17 10/18/24 10:19 BP 126/64 10/18/24 10:19 Pulse Ox 96 10/18/24 10:19 O2 Del Method Room Air 10/18/24 07:36 Discharge Plan Discharge Patient Disposition: Home Condition: Stable Prescriptions: New metoprolol tartrate 25 mg Tablet 12.5 mg PO BID@0900,2100 Qty: 30 0RF metronidazole 500 mg tablet 500 mg PO TID Qty: 10 0RF Continued losartan 100 mg tablet 100 mg PO DAILY Qty: 90 3RF escitalopram oxalate 10 mg tablet 10 mg PO DAILY Qty: 30 5RF ciprofloxacin HCl [Cipro] 500 mg tablet 500 mg PO Q12H Qty: 10 0RF tramadol 50 mg tablet 50 mg PO Q8H PRN (Reason: pain) Qty: 10 0RF Held hydrochlorothiazide 25 mg tablet 25 mg PO DAILY Qty: 90 3RF Hold Instructions: see pcp potassium chloride 20 mEq tablet extended release 20 meq PO DAILY Qty: 90 3RF Hold Instructions: take with HCTZ, hold while HCTZ held Discharge Order = DC NOW: Discharge Order (Routine); Ordered 10/18/24 Ordered By: Thuy Mora Other Ambulatory Orders: MCT/Event Monitor 21 Days (Routine) Timeframe: 1 Day Facility: [facility] - Location: Radiology Ordered By: Thuy Mora Referrals: Rico Colon MD [Physician, Family Practice] Referral Note: Wants this primary care provider instead of [facility] in [place] due to the drive We have notified your physician's clinic of the need for a follow-up appointment to be scheduled. If you have not heard from them within the next 2 business days, please call them directly. Aaron Cantu M.D [Physician, Cardiology] - 1 month Referral Note: We have notified your physician's clinic of the need for a follow-up appointment to be scheduled. If you have not heard from them within the next 2 business days, please call them directly. Discharge Diet: GI Soft Discharge Activity: Resume usual activity Patient Instructions: Metoprolol (By mouth), Metronidazole (By mouth), A-fib (Atrial Fibrillation) (GEN), Opioid Safety, Patient Portal & Marce Instructions Discharge Attestations Time Spent in Discharge Care*: less than 30 min Quality Metrics Clinical Quality Measures [ No reported AMI, CVA or VTE this stay] Coding Level of Care Code Acute Code for Chg Fwd Diagnoses Weakness R53.1 Acute hypokalemia E87.6 Enteritis K52.9 Hyponatremia E87.1 Hypertension I10 Dehydration E86.0 Arrhythmia I49.9
== END 2024-10-18 10:21 | disposition home or self-care (01) | DRG 392 ==
LOC: ER 15:01 → MEDSURG 15:40
PROVIDERS: Student in an Organized Health Care Education/Training Program; Admitting Provider Student in an Organized Health Care Education/Training Program; Emergency Provider Emergency Medicine; PCP Family Medicine; Visit Provider Internal Medicine
DX: K52.9 Noninfective gastroenteritis and colitis, unspecified (principal); E87.1 Hypo-osmolality and hyponatremia; E87.6 Hypokalemia; I10 Essential (primary) hypertension; E86.0 Dehydration; I49.9 Cardiac arrhythmia, unspecified; E66.9 Obesity, unspecified; Z68.35 Body mass index [BMI] 35.0-35.9, adult; I87.2 Venous insufficiency (chronic) (peripheral); R74.01 Elevation of levels of liver transaminase levels; Z90.49 Acquired absence of other specified parts of digestive tract; Z87.440 Personal history of urinary (tract) infections
CPT/HCPCS: 36415; 71045; 80053; 80061; 81001; 82274; 82436; 82607; 82746; 83036; 83540; 83550; 83605; 83630; 83690; 83735; 84100; 84132; 84133; 84145; 84300; 84443; 84484; 85025; 86140; 86403; 87040; 87045; 87177; 87209; 87427; 87449; 87493; 93005; 94664; 96365; 96366; 96367; 96372; 97161; 99285; J1644; J2470; J2543; J3480; J3490; J7030; J9999